=== PATIENT | female | born 1985 | race Caucasian/White ===

== ENCOUNTER 2016-10-31 16:15 | Observation (INO) | payer OTHER ==
--- NOTE | 2016-10-31 16:45 | ERPHSYRPT ---
- History of Present Illness Time Seen by Provider: 10/31/16 16:20 Source: patient, police Exam Limitations: clinical condition, intoxication Patient Subjective Stated Complaint: pd called to [facility] patient was disorietened and had white paste arounhd her mouth , resisted arrest , was taken to nursing home. Residential refused her until medical clearance Triage Nursing Assessment: pt is uncooperative and refusing to assist with triage information taken from old history Timing/Duration: today Severity of Symptoms-Max: severe Severity of Symptoms-Current: severe Suicidal thoughts: other (unknown) Associated Symptoms: agitated, confused, impaired concentration Previous symptoms: same symptoms as today, other (many presentations here for Meth abuse) Allergies/Adverse Reactions: No Known Drug Allergies Allergy (Unverified 05/21/14 18:09) Hx Tetanus, Diphtheria Vaccination/Date Given: (unknown) Hx Influenza Vaccination/Date Given: (unknown) Hx Pneumococcal Vaccination/Date Given: (unknown) Immunizations Up to Date: (unknown) - Past Medical History Pertinent Past Medical History: Yes Neurological History: No Pertinent History ENT History: No Pertinent History Respiratory History: No Pertinent History Endocrine Medical History: No Pertinent History Musculoskeletal History: No Pertinent History GI Medical History: No Pertinent History History: No Pertinent History Psycho-Social History: Anxiety, Depression, Other Female Reproductive Disorders: No Pertinent History Other Medical History: POST TRAUMATIC STRESS DISORDER. HEPATITIS C - Past Surgical History Past Surgical History: No Neuro Surgical History: No Pertinent History Cardiac: No Pertinent History Respiratory: No Pertinent History Gastrointestinal: No Pertinent History Genitourinary: No Pertinent History Musculoskeletal: No Pertinent History Female Surgical History: No Pertinent History - Social History Smoking Status: Current every day smoker How long have you smoked: 10 Exposure to second hand smoke: Yes Drug Use: methamphetamines Patient Lives Alone: Yes - Review of Systems Constitutional: No Symptoms Eyes: No Symptoms Ears, Nose, & Throat: No Symptoms Respiratory: No Symptoms Cardiac: No Symptoms Abdominal/Gastrointestinal: No Symptoms Genitourinary Symptoms: No Symptoms Musculoskeletal: No Symptoms Skin: No Symptoms Neurological: No Symptoms Psychological: Drug Abuse, Anxiety, Emotional Lability Endocrine: No Symptoms Hematologic/Lymphatic: No Symptoms Immunological/Allergic: No Symptoms All Other Systems: Unable due to condition (of intoxication and uncooperative) - Nursing Vital Signs Nursing Vital Signs: Initial Vital Signs Temperature 98.3 F Temperature Source Oral Pulse Rate 124 Respiratory Rate 16 Blood Pressure 138/98 Pain Intensity 0 - Physical Exam General Appearance: mild distress, anxiety Eyes, Ears, Nose, Throat Exam: normal ENT inspection, pharynx normal Neck Exam: normal inspection, non-tender, supple, full range of motion Respiratory Exam: normal breath sounds, lungs clear Cardiovascular Exam: regular rate/rhythm, normal heart sounds, normal peripheral pulses Gastrointestinal/Abdominal Exam: soft, normal bowel sounds Extremities Exam: normal inspection, normal range of motion 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, responds to pain, agitated, anxious, disoriented x 3 Appearance: disheveled, impaired insight, impaired recent memory Behavior/Eye Contact/Speech: refused to answer, increased rate of speech, uncooperative, agitated, alert & uncooperative, intoxicated appearance Thoughts/Hallucinations: incoherent Skin Exam: normal color, warm, dry SpO2 Interpretation: normal SpO2: 97 Oxygen Delivery: Room Air - Course Nursing assessment & vital signs reviewed: Yes Ordered Tests: Active Orders 24 hr Category Date Time Status Finisher Hot Strip STAT Care 10/31/16 16:28 Active Clean Catch Urine Specimen STAT Care 10/31/16 16:28 Active EKG-ER Only STAT Care 10/31/16 16:28 Active IV Insertion STAT Care 10/31/16 16:28 Active Pulse Oximetry (ED) STAT Care 10/31/16 16:28 Active CHEST 1 VIEW (PORTABLE) Stat Exams 10/31/16 16:28 Completed ACETAMINOPHEN Stat Lab 10/31/16 16:49 Completed CBC W DIFF Stat Lab 10/31/16 16:49 Completed CMP Stat Lab 10/31/16 16:49 Completed ETHYL ALCOHOL Stat Lab 10/31/16 16:48 Received HCG,QUALITATIVE URINE Stat Lab 10/31/16 16:28 Ordered SALICYLATE Stat Lab 10/31/16 16:49 Completed UA Stat Lab 10/31/16 16:28 Ordered Urine Triage Profile Stat Lab 10/31/16 16:28 Ordered Medication Summary Discontinued Medications Generic Name Dose Route Start Last Admin Trade Name Freq PRN Reason Stop Dose Admin Ziprasidone 20 mg 10/31/16 16:52 10/31/16 17:09 Geodon 20 Mg Inj IM 10/31/16 16:53 20 mg STAT ONE Administration Ziprasidone Confirm 10/31/16 16:53 Geodon 20 Mg Inj Administered 10/31/16 16:54 Dose 20 mg IM .STK-MED ONE Lab/Rad Data: Laboratory Result Diagrams 10/31/16 16:49 10/31/16 16:49 Laboratory Results 10/31/16 10/31/16 Range/Units 16:49 16:49 WBC 7.7 (4.0-10.5) K/mm3 RBC 4.39 (4.1-5.4) M/mm3 Hgb 12.6 (12.0-16.0) gm/dl Hct 39.8 (35-47) % MCV 90.7 (78-100) fl MCH 28.7 (26-32) pg MCHC 31.7 L (32-36) g/dl RDW 13.8 (11.5-14.0) % Plt Count 287 (150-450) K/mm3 MPV 9.3 (6-9.5) fl Gran % 69.6 H (36.0-66.0) % Lymphocytes % 20.7 L (24.0-44.0) % Monocytes % 8.3 (0.0-12.0) % Eosinophils % 1.0 (0.00-5.0) % Basophils % 0.4 (0.0-0.4) % Basophils # 0.03 (0-0.4) Sodium 141 (136-145) mEq/L Potassium 4.6 (3.5-5.1) mEq/L Chloride 102 (98-107) mEq/L Carbon Dioxide 27.3 (21-32) mEq/L Anion Gap 16.1 H (5-15) MEQ/L BUN 19 (9-20) mg/dL Creatinine 0.97 (0.55-1.30) mg/dl Estimated GFR > 60 ML/MIN Glucose 123 H (70-110) MG/DL Calcium 9.6 (8.5-10.1) mg/dL Total Bilirubin 0.3 (0.2-1.0) mg/dL AST 40 H (15-37) U/L ALT 75 (12-78) U/L Alkaline Phosphatase 68 (46-116) U/L Serum Total Protein 8.3 H (6.4-8.2) gm/dL Albumin 4.3 (3.4-5.0) g/dL Salicylates < 2.8 L (2.8-20.0) mg/dl Acetaminophen < 2.0 L (10-30) ug/ml - Progress Progress: improved Discussed with : Declan Will see patient in: hospital (observation) Counseled pt/family regarding: lab results, diagnosis, need for follow-up, rad results - Departure Time of Disposition: 17:40 Departure Disposition: Observation Clinical Impression: Substance abuse Intoxication by drug Qualifiers: Complication of substance-induced condition: with delirium Qualified Code(s): F19.921 - Other psychoactive substance use, unspecified with intoxication with delirium Condition: Serious Critical Care Time: Yes Critical Care Time(excluding separately billable procedures): 75-104 minutes
[2016-10-31] MEDS ORDERED: Geodon 20 MG INJ IM ONE ×2 (16:52→16:53)
--- NOTE | 2016-10-31 17:01 | XRAY ---
Indication: Overdose. Comparison: May 28, 2011 Portable chest again demonstrates normal heart, lungs, and bony thorax. Stable left upper abdomen benign appearing chunky calcifications.
[2016-10-31 17:17] LABS: BASOPHIL % 0.4 % (0.0-0.4); Granulocytes % 69.6 % (36.0-66.0); Lymphocytes % 20.7 % (24.0-44.0); Mean Cell Volume 90.7 fl (78-100); Mean Corpuscular Hemoglobin 28.7 pg (26-32); Mean Platelet Volume 9.3 fl (6-9.5); Monocytes % 8.3 % (0.0-12.0); Platelet Count 287 K/mm3 (150-450); Red Blood Count 4.39 M/mm3 (4.1-5.4); Red Cell Distribution Width 13.8 % (11.5-14.0); White Blood Count 7.7 K/mm3 (4.0-10.5)
[2016-10-31 17:32] LABS: ALBUMIN 4.3 g/dL (3.4-5.0); ALKALINE PHOSPHATASE 68 U/L (46-116); ANION GAP 16.1 MEQ/L (5-15); BILIRUBIN,TOTAL 0.3 mg/dL (0.2-1.0); BLOOD UREA NITROGEN 19 mg/dL (9-20); CHLORIDE 102 mEq/L (98-107); Carbon Dioxide 27.3 mEq/L (21-32); Glucose 123 MG/DL (70-110); Potassium 4.6 mEq/L (3.5-5.1); SGOT/AST 40 U/L (15-37); SGPT/ALT 75 U/L (12-78); SODIUM 141 mEq/L (136-145); Total Protein 8.3 gm/dL (6.4-8.2)
[2016-10-31 17:33] LABS: ACETAMINOPHEN < 2.0 ug/ml (10-30)
[2016-10-31] MEDS ORDERED: Zofran 4 MG/2 ML VIAL IV PRN (17:45)
[2016-10-31] MEDS ORDERED: Sodium Chloride 0.9% 1000 ML 1,000 ML ONE (18:01)
[2016-10-31] MEDS ORDERED: Zofran 4 MG/2 ML VIAL ONE (18:01)
[2016-10-31] MEDS: Sodium Chloride 0.9% 1000 ML 1,000 ML IV SCH ×2 (18:03→21:40)
[2016-10-31 18:37] LABS: COMPLETE URINE MICROSCOPIC? YES; Collection Type CATH; Mucus SLIGHT /HPF (NEGATIVE); WBC 15-25 /HPF (0-5)
[2016-10-31 18:38] LABS: Bacteria FEW /HPF (NEGATIVE); Epithelial Cells MODERATE /HPF (FEW); Trichomonas PRESENT /HPF (NEGATIVE)
[2016-11-01] MEDS: Sodium Chloride 0.9% 1000 ML 1,000 ML IV SCH (05:49)
[2016-11-01] MEDS ORDERED: Flagyl 500 MG PO ONE (07:53)
--- NOTE | 2016-11-01 07:56 | PCM.HP ---
History of Present Illness - Chief Complaint Chief Complaint: substance intoxication Date: 11/01/16 History of Present Illness: is a 31 year old female. with history of anxiety, panic disorder, and polysubstance abuse. She states she was at a person's house across from her mother's who she did not know and saw a man she thought had stopped breathing and overdosed. She had 1 hit of meth prior to this but states she was not "cranked out or anything" when this happened and she tried to breath for him but the other people at the house were trying to get her to stop and she eventually ran out side to tell her mother to call the ambulance but the other people stopped her from calling and ended up agreeing to take him to the ED. At this time she states she started having a panic attack from all this happening and was trying to get to the hospital to make sure this person she did not know made it to the ED she states she waved down a car who agreed to take her but not all the way to the hospital and she states she told them to take her to the library because where she lives in [facility] she states the "librarians will help you". When she got there she states she was having a panic attack and was hyperventilating and couldn't get her words out so the staff called the police who tried to arrest her per the ED report and then since she was intoxicated in appearance took her to the ED for clearance where she was very agitated but calmed down nicely with geodon. THis am she feels ok she is still anxious she says sthe man she though was turned out to be ok but she thinks he needed to be revived. (it is unclear what happened wit hthis person but there was report of a person presenting to the ED for something like this). She states she only used marijuana xanax and THC. She wants help with her anxiety and she states her substance abuse is in the best control it has been in awhile and wants help with it too. She has no intention of harming herself. - Review of Systems Constitutional: No Fever, No Chills Eyes: No Symptoms Ears, Nose, & Throat: No Symptoms Respiratory: No Cough, No Short Of Breath Cardiac: No Chest Pain, No Edema, No Syncope Abdominal/Gastrointestinal: No Abdominal Pain, No Nausea, No Vomiting, No Diarrhea Genitourinary Symptoms: No Dysuria Musculoskeletal: No Back Pain, No Neck Pain Skin: No Rash Neurological: No Dizziness, No Focal Weakness, No Sensory Changes Psychological: No Symptoms Endocrine: No Symptoms Hematologic/Lymphatic: No Symptoms Immunological/Allergic: No Symptoms Medications & Allergies Home Medications: Home Medication List Acetaminophen 325 mg [Tylenol 325 mg] 325 mg PO Q4HPRN PRN 11/01/16 [ History Confirmed 11/01/16] Omeprazole Magnesium [Prilosec Otc] 20 mg PO DAILY 11/01/16 [History Confirmed 11/01/16] Allergies/Adverse Reactions: Allergies Allergy/AdvReac Type Severity Reaction Status Date / Time No Known Drug Allergies Allergy Unverified 05/21/14 18:09 - Past Medical History Past Medical History: Yes Neurological History: No Pertinent History ENT History: No Pertinent History Cardiac History: No Pertinent History Respiratory History: No Pertinent History Endocrine Medical History: No Pertinent History Musculoskelatal History: No Pertinent History GI Medical History: No Pertinent History History: No Pertinent History Pyscho-Social History: Anxiety, Depression, Other Reproductive Disorders: No Pertinent History Comment: POST TRAUMATIC STRESS DISORDER. HEPATITIS C - Female History Are you now?: No - Past Surgical History Past Surgical History: No Neuro Surgical History: No Pertinent History Cardiac History: No Pertinent History Respiratory Surgery: No Pertinent History GI Surgical History: No Pertinent History Genitourinary Surgical Hx: No Pertinent History Musculskeletal Surgical Hx: No Pertinent History Female Surgical History: No Pertinent History - Social History Smoking Status: Current every day smoker How long have you smoked: 10 Exposure to second hand smoke: Yes Alcohol: Rarely Drug Use: methamphetamines - Physical Exam Vital Signs: Vital Signs - 24 hr Temp Pulse Resp BP BP Pulse Ox 11/01/16 04:00 98.1 F 102 H 19 118/73 98 10/31/16 23:48 97.7 F 102 H 20 120/51 96 10/31/16 20:30 98.6 F 112 H 20 113/64 96 10/31/16 19:02 98.3 F 109 H 20 99/66 95 10/31/16 18:55 109 H 20 99/66 95 10/31/16 17:56 117 H 16 111/58 96 10/31/16 17:43 97 10/31/16 16:28 97 01/03/17 16:16 98.3 F 124 H 16 138/98 97 General Appearance: no apparent distress, alert, anxiety Neurologic Exam: alert, oriented x 3, cooperative, normal mood/affect, nml cerebellar function, nml station & gait, sensation nml, No motor deficits Eye Exam: PERRL/EOMI, eyes nml inspection Ears, Nose, Throat Exam: normal ENT inspection, TMs normal, pharynx normal, moist mucous membranes Neck Exam: normal inspection, non-tender, supple, full range of motion Respiratory Exam: normal breath sounds, lungs clear, No respiratory distress Cardiovascular Exam: regular rate/rhythm, normal heart sounds, normal peripheral pulses Gastrointestinal/Abdomen Exam: soft, normal bowel sounds, No tenderness, No mass Back Exam: normal inspection, normal range of motion, No CVA tenderness, No vertebral tenderness Extremity Exam: normal inspection, normal range of motion, pelvis stable Skin Exam: normal color, warm, dry, No rash Lymphatic Exam: No adenopathy Assessment/Plan (1) Anxiety Status: Acute Assessment & Plan: the intoxication appears to have worn off and she is acting appropraitely at this time and will [facility] Code(s): F41.9 - ANXIETY DISORDER, UNSPECIFIED (2) Trichomoniasis Status: Acute Assessment & Plan: asymptomatic treat with 2 g flagyl po discussed the sexual transmitted infection and need for check up and screening for other sexually transmitted infections. (3) Intoxication by drug Status: Acute Qualifiers: Complication of substance-induced condition: with delirium Qualified Code(s ): F19.921 - Other psychoactive substance use, unspecified with intoxication with delirium Code(s): F19.929 - OTH PSYCHOACTIVE SUBSTANCE USE, UNSP WITH INTOXICATION, UNSP (4) Substance abuse Status: Acute Code(s): F19.10 - OTHER PSYCHOACTIVE SUBSTANCE ABUSE, UNCOMPLICATED
[2016-11-01 09:15] VITALS: O2SAT 99
[2016-11-01] MEDS ORDERED: Protonix 40MG Tablet PO SCH (10:00)
[2016-11-01] MEDS ORDERED: NON-FORMULARY ITEM (Omeprazole Magnesium [Prilosec Otc] 20 MG) PO SCH (10:00)
[2016-11-01 12:13] VITALS: BP 121/58; PULSE 108
== END 2016-11-01 13:25 | disposition home or self-care (01) ==
LOC: ED 16:15 → ICU 18:29
PROVIDERS: ADMIT Family Medicine; ATTEND Family Medicine
DX: A59.9 Trichomoniasis, unspecified (principal); F19.921 Other psychoactive substance use, unspecified with intoxication with delirium; F19.929 Other psychoactive substance use, unspecified with intoxication, unspecified
CPT/HCPCS: 36000; 36415; 71010; 80053; 80307; 81000; 84703; 85025; 90791; 93005; 93041; 93268; 94760; 96372; 99284; G0378; J2405; J3486; Q3014

== ENCOUNTER 2017-03-06 15:50 | Emergency (ER) | payer SELFPAY ==
[2017-03-06 16:06] VITALS: O2SAT 98
[2017-03-06 16:14] LABS: Collection Type CLEAN CATCH
[2017-03-06 16:15] LABS: COMPLETE URINE MICROSCOPIC? NO
[2017-03-06 16:41] LABS: Bacteria Rare; Clue Cells None Seen; Trichomonas None Seen; Yeast None Seen
--- NOTE | 2017-03-06 16:43 | ERPHSYRPT ---
- History of Present Illness Time Seen by Provider: 03/06/17 16:07 Source: patient Patient Subjective Stated Complaint: pt states she has had vaginal discomfort and worried she may have a "bacterial infection." pt states she has had this in the past. denies any vaginal discharge, c/o an odor. Triage Nursing Assessment: pt pink, warm, dry. pt afebrile. Physician History: CC: vaginal odor Hx: 31 y/o healthy pt with remote hx of trich. She has vaginal odor. Finished normal menses this week. Normal urination. No abd pain. No fever or chills. Went to doctor office but could not be seen due to insurance. Allergies/Adverse Reactions: No Known Drug Allergies Allergy (Unverified 03/06/17 16:06) Hx Tetanus, Diphtheria Vaccination/Date Given: Yes (up to date) Hx Influenza Vaccination/Date Given: No Hx Pneumococcal Vaccination/Date Given: No - Review of Systems Constitutional: No Fever Abdominal/Gastrointestinal: No Abdominal Pain Genitourinary Symptoms: Other (vaginal odor), No , No Vaginal Bleeding , No Vaginal Discharge, No Vaginal Itching Skin: Rash - Past Medical History Pertinent Past Medical History: No Neurological History: No Pertinent History ENT History: No Pertinent History Cardiac History: No Pertinent History Respiratory History: No Pertinent History Endocrine Medical History: No Pertinent History Musculoskeletal History: No Pertinent History GI Medical History: No Pertinent History History: No Pertinent History Psycho-Social History: Anxiety, Depression, Other Female Reproductive Disorders: No Pertinent History Other Medical History: POST TRAUMATIC STRESS DISORDER. HEPATITIS C - Past Surgical History Past Surgical History: Yes Neuro Surgical History: No Pertinent History Cardiac: No Pertinent History Respiratory: No Pertinent History Gastrointestinal: Appendectomy Genitourinary: No Pertinent History Musculoskeletal: No Pertinent History Female Surgical History: No Pertinent History - Social History Smoking Status: Current every day smoker How long have you smoked: 5 Exposure to second hand smoke: Yes Drug Use: none Patient Lives Alone: No - Female History Hx Last Menstrual Period: 03/05/17 - Nursing Vital Signs Nursing Vital Signs: Initial Vital Signs Temperature 98.5 F Temperature Source Oral Pulse Rate 98 Respiratory Rate 18 Blood Pressure [Right Arm] 104/77 Pain Intensity 0 - Physical Exam General Appearance: alert Eye Exam: PERRL/EOMI Neck Exam: supple Cardiovascular Exam: regular rate/rhythm Gastrointestinal/Abdomen Exam: soft, No tenderness, No distention Pelvic Exam: normal external exam, No adnexal tenderness, No adnexal mass, No cervical motion tenderness, No vaginal bleeding, No uterine tenderness, No vaginal discharge Extremity Exam: normal inspection, normal range of motion Neurologic Exam: alert, oriented x 3, cooperative Skin Exam: warm, dry, No rash SpO2 Interpretation: normal SpO2: 98 Oxygen Delivery: Room Air - Course Nursing assessment & vital signs reviewed: Yes Ordered Tests: Active Orders 24 hr Category Date Time Status Pelvic Exam Assist STAT Care 03/06/17 16:08 Active HCG,QUALITATIVE URINE Stat Lab 03/06/17 16:09 Completed UA Stat Lab 03/06/17 16:09 Completed Wet Prep Stat Lab 03/06/17 16:09 Completed Lab/Rad Data: Laboratory Results 03/06/17 03/06/17 Range/Units 16:09 16:09 Ur Collection Type CLEAN CATCH Urine Color YELLOW (YELLOW) Urine Appearance CLEAR (CLEAR) Urine pH 7.0 (5-6) Ur Specific [place] 1.015 (1.005-1.025) Urine Protein NEGATIVE (Negative) Urine Glucose (UA) NEGATIVE (NEGATIVE) mg/dL Urine Ketones NEGATIVE (NEGATIVE) Urine Nitrite NEGATIVE (NEGATIVE) Urine Bilirubin NEGATIVE (NEGATIVE) Urine Urobilinogen 0.2 (0-1) mg/dL Urine WBC (Auto) NEGATIVE (NEGATIVE) Urine RBC (Auto) NEGATIVE (0-5) Chong/ul Urine HCG, Qual NEGATIVE (Negative) WBC (Wet Prep) Few RBC (Wet Prep) Rare Epi Cells (Wet Prep) Few Bacteria (Wet Prep) Rare Clue Cells (Wet Prep) None Seen Trichomonas (Wet Prep) None Seen Budding Yeast (Wet Prp) None Seen Specimen Received 03/06/17 1600 - Progress Progress Note: 03/06/17 16:48 Will Rx flagyl to cover BV. GC/CT pending. Instr given. Counseled pt/family regarding: lab results, diagnosis, need for follow-up - Departure Time of Disposition: 16:49 Departure Disposition: Home Clinical Impression: Bacterial vaginosis Condition: Stable Critical Care Time: No Referrals: SOLEDAD HUERTA [Primary Care Provider] - Instructions: Bacterial Vaginosis Additional Instructions: Rx flagyl- no alcohol produtcs. Follow up with Dr Huerta. GC/CT pending. Prescriptions: Metronidazole 500 mg [Flagyl 500 MG] 500 mg PO BID #14 tablet
[2017-03-06 16:57] VITALS: BP 106/68; PULSE 88
[2017-03-06 18:08] LABS: CHLAMYDIA DNA POSITIVE
== END 2017-03-06 16:56 | disposition home or self-care (01) ==
LOC: ED 15:50
DX: N76.0 Acute vaginitis (principal); B96.89 Other specified bacterial agents as the cause of diseases classified elsewhere
CPT/HCPCS: 81002; 84703; 87210; 87490; 87590; 99283

== ENCOUNTER 2017-05-16 12:31 | Emergency (ER) | payer SELFPAY ==
[2017-05-16] MEDS ORDERED: CORTISPORIN EAR DROPS 10 ML SUSPENSION OT ONE (13:01)
[2017-05-16] MEDS ORDERED: Cortisporin Eye Drops OP ONE (13:07)
--- NOTE | 2017-05-16 13:11 | ERPHSYRPT ---
- History of Present Illness Time Seen by Provider: 05/16/17 13:04 Source: patient, police Exam Limitations: no limitations Patient Subjective Stated Complaint: "I was trying to make an ear plug. I put toilet paper in my left ear about 8 days ago" Triage Nursing Assessment: aox3, breathing easy unlabored, skin pink warm dry, steady gait Physician History: patient CC of FB left ear; she placed a cotton wad in her left ear 8 days ago; no pain; no d/c' no fever but cant hear from left ear Timing/Duration: gradual onset, days (8) Severity: mild ENT Location: ear (L) Prearrival Treatment: no prearrival treatment Modifying Factors: Improves With: nothing Associated Symptoms: change in hearing (left) Allergies/Adverse Reactions: No Known Drug Allergies Allergy (Verified 05/16/17 12:39) Home Medications: Omeprazole 20 MG [Prilosec 20 mg] 20 mg PO DAILY 05/16/17 [History] Hx Tetanus, Diphtheria Vaccination/Date Given: Yes (up to date) Hx Influenza Vaccination/Date Given: No Hx Pneumococcal Vaccination/Date Given: No - Review of Systems Constitutional: No Symptoms Eyes: No Symptoms Ears, Nose, & Throat: Hearing Changes (left), No Ear Pain, No Ear Discharge, No Tinnitus, No Nose Pain, No Epistaxis Respiratory: No Cough, No Dyspnea, No Wheezing Cardiac: No Chest Pain, No Palpitations, No Syncope Abdominal/Gastrointestinal: No Abdominal Pain, No Nausea, No Vomiting, No Diarrhea Genitourinary Symptoms: No Symptoms Musculoskeletal: No Symptoms Skin: No Symptoms Neurological: No Symptoms Psychological: No Symptoms - Past Medical History Pertinent Past Medical History: Yes Neurological History: No Pertinent History ENT History: No Pertinent History Cardiac History: No Pertinent History Respiratory History: No Pertinent History Endocrine Medical History: No Pertinent History Musculoskeletal History: No Pertinent History GI Medical History: GERD History: No Pertinent History Psycho-Social History: Anxiety, Depression, Other Female Reproductive Disorders: No Pertinent History Other Medical History: POST TRAUMATIC STRESS DISORDER. HEPATITIS C - Past Surgical History Past Surgical History: Yes Neuro Surgical History: No Pertinent History Cardiac: No Pertinent History Respiratory: No Pertinent History Gastrointestinal: Appendectomy Genitourinary: No Pertinent History Musculoskeletal: No Pertinent History Female Surgical History: No Pertinent History - Social History Smoking Status: Current every day smoker How long have you smoked: 8 Exposure to second hand smoke: Yes Alcohol Use: Socially Drug Use: none Patient Lives Alone: No Significant Family History: no pertinent family hx - Female History Hx Last Menstrual Period: 04/16/17 Hx Now: No - Nursing Vital Signs Nursing Vital Signs: Initial Vital Signs Temperature 98.2 F 05/16/17 12:35 Pulse Rate 95 H 05/16/17 12:35 Respiratory Rate 14 05/16/17 12:35 Blood Pressure 130/67 05/16/17 12:35 O2 Sat by Pulse Oximetry 100 05/16/17 12:35 Pain Scale Pain Intensity 0 - Physical Exam General Appearance: mild distress, alert Eye Exam: bilateral eye: normal inspection, PERRL, EOMI Ear Exam: right ear: TM normal, left ear: foreign body (partially obstructing left ear canal deep; TM partially visualized; hearing decreased), bilateral ear : auricle normal, canal normal Nasal Exam: normal inspection Throat Exam: normal, pharynx normal, moist mucus membranes Neck Exam: normal inspection, non-tender, supple, full range of motion Cardiovascular/Respiratory Exam: chest non-tender, normal breath sounds, regular rate/rhythm, heart sounds normal, no ecchymosis, no JVD, no M/R/G, no respiratory distress Abdominal Exam: non-tender, soft, no organomegaly Neurologic Exam: alert, oriented x 3, cooperative, bank messenger II-XII nml as tested, normal mood/affect, nml cerebellar function, nml station & gait Skin Exam: normal color, warm, dry, No rash SpO2 Interpretation: normal SpO2: 100 Oxygen Delivery: Room Air Procedures - Additional Procedures Progress: FB removal left Ear; under direct visualization of left ear canal using operating otoscope head and alligator forceps a large amount of tissue type paper was retrieved in multiple pieces until canal clear; hearing restored and TM intact; patient tolerated well; several drops of cortisporin otic applied for inflammed appearing canal post removal - Course Nursing assessment & vital signs reviewed: Yes Ordered Tests: Active Orders 24 hr Category Date Time Status Re-Check Vital Signs STAT Care 05/16/17 13:04 Ordered Medication Summary Discontinued Medications Generic Name Dose Route Start Last Admin Trade Name Freq PRN Reason Stop Dose Admin Neomycin/Polymyxin/Hydrocortisone Confirm 05/16/17 13:01 Cortisporin Ear Drops 10 Ml Suspension Administered 05/16/17 13:02 Dose 10 ml OT .STK-MED ONE - Progress Progress: improved (after removal of FB), re-examined (after removal of FB) Progress Note: 05/16/17 13:13 removed FB left Ear canal; tolerated well; canal inflamed after removal; TM intact and hearing improved; meds applied; instructions given Counseled pt/family regarding: diagnosis, need for follow-up - Departure Time of Disposition: 13:14 Departure Disposition: Home Clinical Impression: Acute foreign body of left ear canal Condition: Stable Critical Care Time: No Instructions: Removal of Foreign Body From Ear Additional Instructions: use ear drops 2x a day for 5 days; do NOT place any FB in the ear Follow-up with family doctor as directed. Call for appointment. Return if any problems. If you smoke please stop. Call or follow up with your family doctor for assistance if you need it to stop. Please wear your seatbelt when driving. Have a nice day. Thank you for allowing us to participate in your care today. :o) Dr Andrez Martinez
[2017-05-16 13:22] VITALS: BP 101/63; PULSE 93; O2SAT 99
== END 2017-05-16 13:20 | disposition home or self-care (01) ==
LOC: ED 12:31
DX: T16.2XXA Foreign body in left ear, initial encounter (principal)
CPT/HCPCS: 99283; A9270-GY

== ENCOUNTER 2018-05-17 21:42 | Emergency (ER) | payer OTHER ==
[2018-05-17 22:04] VITALS: BP 126/86; PULSE 96; O2SAT 99
[2018-05-17] MEDS ORDERED: Rocephin 1000 MG INJ ONE (22:13)
[2018-05-17] MEDS ORDERED: TORAdol 30 mg Injection ONE ×2 (22:13→22:21)
--- NOTE | 2018-05-17 22:17 | ERPHSYRPT ---
- History of Present Illness Time Seen by Provider: 05/17/18 22:12 Source: patient Exam Limitations: no limitations Patient Subjective Stated Complaint: pt co large abcess on left wrist anterior forearm for approx 1 week; started as a small redddened area 1 week ago and then 2 days ago became very large, red, and painful; pt states it has not been draining at all since onset. Triage Nursing Assessment: pt a&o x3; skin p, w, & d; ambulated to room per self ; no other distress noted. Physician History: pt co large abcess on left wrist anterior forearm for approx 1 week; started as a small redddened area 1 week ago and then 2 days ago became very large, red, and painful; pt states it has not been draining at all since onset. Occurred: last week, days ago Severity of Pain-Max: severe Severity of Pain-Current: severe Extremities Pain Location: forearm: left, wrist: left Modifying Factors: Improves With: nothing Associated Symptoms: none Allergies/Adverse Reactions: No Known Drug Allergies Allergy (Verified 05/17/18 22:04) Home Medications: Omeprazole 20 MG [Prilosec 20 mg] 20 mg PO DAILY 05/16/17 [History] Hx Tetanus, Diphtheria Vaccination/Date Given: Yes Hx Influenza Vaccination/Date Given: No Hx Pneumococcal Vaccination/Date Given: No Immunizations Up to Date: No - Review of Systems Constitutional: No Symptoms Eyes: No Symptoms Musculoskeletal: Joint Swelling, Other (large abscess on benjamin surface of left lower forearm) - Past Medical History Pertinent Past Medical History: Yes Neurological History: No Pertinent History ENT History: No Pertinent History Cardiac History: No Pertinent History Respiratory History: No Pertinent History Endocrine Medical History: No Pertinent History Musculoskeletal History: No Pertinent History GI Medical History: GERD History: No Pertinent History Psycho-Social History: Anxiety, Depression, Other Female Reproductive Disorders: No Pertinent History Other Medical History: POST TRAUMATIC STRESS DISORDER. HEPATITIS C - Past Surgical History Past Surgical History: Yes Neuro Surgical History: No Pertinent History Cardiac: No Pertinent History Respiratory: No Pertinent History Gastrointestinal: Appendectomy Genitourinary: No Pertinent History Musculoskeletal: No Pertinent History Female Surgical History: No Pertinent History - Social History Smoking Status: Current every day smoker How long have you smoked: 5 years Exposure to second hand smoke: No Alcohol Use: Socially Drug Use: none Patient Lives Alone: Yes (pt states she is homeless) Significant Family History: no pertinent family hx - Female History Hx Last Menstrual Period: 3 months ago Hx Now: No - Nursing Vital Signs Nursing Vital Signs: Initial Vital Signs Temperature 98.1 F 05/17/18 21:49 Pulse Rate 96 H 05/17/18 21:49 Respiratory Rate 18 05/17/18 21:49 Blood Pressure 126/86 05/17/18 21:49 O2 Sat by Pulse Oximetry 99 05/17/18 21:49 Pain Scale Pain Intensity 8 - Physical Exam General Appearance: no apparent distress Eyes, Ears, Nose, Throat Exam: normal ENT inspection Cardiovascular/Respiratory Exam: chest non-tender, normal breath sounds Elbow/Forearm Exam: pain, soft tissue tenderness, swelling SpO2: 99 Oxygen Delivery: Room Air - Course Nursing assessment & vital signs reviewed: Yes Ordered Tests: Active Orders 24 hr Category Date Time Status CBC W DIFF Stat Lab 05/17/18 22:06 Ordered CMP Stat Lab 05/17/18 22:06 Ordered - Progress Progress: unchanged (Dr Cardona), pain not gone completely Progress Note: 05/17/18 22:15 [facility] ED (one call center) notified, will accept transfer, Dr Srinivasan accepted patient and will see her in ER Discussed with Dr.: Other ( ) Will see patient in: ED - Departure Time of Disposition: 22:15 Departure Disposition: Transfer (via priavate car to [facility] ED) Clinical Impression: Abscess of forearm, left Condition: Stable Critical Care Time: No Referrals: SOLEDAD HEURTA [Primary Care Provider] - Instructions: Wound Infection
[2018-05-17 22:29] LABS: BASOPHIL % 0.3 % (0.0-0.4); Basophil (Absolute #) 0.02 (0-0.4); Eosinophil % 3.4 % (0.00-5.0); Eosinophil (Absolute #) 0.24 (0-0.5); Granulocyte Absolute (ANC) 3.66 (1.4-6.9); Granulocytes % 51.3 % (36.0-66.0); Hematocrit 36.2 % (35-47); Hemoglobin 11.8 gm/dl (12.0-16.0); Lymphocyte (Absolute #) 2.54 (1.0-4.6); Lymphocytes % 35.7 % (24.0-44.0); Mean Cell Volume 90.5 fl (78-100); Mean Corpuscular Hemoglobin 29.5 pg (26-32); Mean Corpuscular Hgb Concent. 32.6 g/dl (32-36); Mean Platelet Volume 8.6 fl (6-9.5); Monocyte (Absolute #) 0.66 (0.0-1.3); Monocytes % 9.3 % (0.0-12.0); Platelet Count 280 K/mm3 (150-450); Red Cell Distribution Width 14.1 % (11.5-14.0); White Blood Count 7.1 K/mm3 (4.0-10.5)
[2018-05-17] MEDS ORDERED: TORAdol 30 mg Injection IM ONE (22:30)
[2018-05-17] MEDS ORDERED: Rocephin 1000 MG INJ IM ONE (22:31)
[2018-05-17 22:46] LABS: ALBUMIN 4.1 g/dL (3.5-5.0); ALKALINE PHOSPHATASE 66 U/L (38-126); ANION GAP 12.6 MEQ/L (5-15); BLOOD UREA NITROGEN 13 mg/dL (7-17); CHLORIDE 105 mmol/L (98-107); Calcium 9.5 mg/dL (8.4-10.2); Carbon Dioxide 30 mmol/L (22-30); Creatinine 1 0.77 mg/dL (0.52-1.04); Glucose 102 mg/dL (74-106); Potassium 4.1 mmol/L (3.5-5.1); SGOT/AST 23 U/L (14-36); SGPT/ALT 22 U/L (0-35); SODIUM 143 mmol/L (137-145); Total Protein 7.2 g/dL (6.3-8.2)
== END 2018-05-17 22:44 | disposition short-term general hospital (02) ==
LOC: ED 21:42
DX: L02.414 Cutaneous abscess of left upper limb (principal)
CPT/HCPCS: 36415; 80053; 85025; 96372; 99284; J0696; J1885

== ENCOUNTER 2018-06-14 14:03 | Emergency (ER) | payer OTHER ==
--- NOTE | 2018-06-14 14:19 | ERPHSYRPT ---
- History of Present Illness Time Seen by Provider: 06/14/18 14:13 Source: patient Exam Limitations: no limitations Patient Subjective Stated Complaint: pt to er per PD, uncooperative, Pd advising pt was arrested in [place] and pt appeared under the influence of an unknown substance, pt refuses to speak, appears confused, takes repetitive instruction to get her to understand direcrtions Triage Nursing Assessment: pt uncooperative, appears as if she is unable to understand simple directions, ambulates per self but with slow gait while in handcuffs behind her back Physician History: 33-year-old white female with history of GERD, anxiety, depression, PTSD, hepatitis C, substance abuse She is brought by the police department She apparently either cannot talk or will not talk. Police Department feel that the patient might have taken some substance are not sure which. Past medical history obtained from records. Past medical history includes GERD, anxiety, depression, PTSD, hepatitis C, substance abuse Past surgical history includes appendectomy Timing/Duration: today Severity: moderate Modifying Factors: Improves With: nothing Associated Symptoms: other (patient will not answer questions) Allergies/Adverse Reactions: No Known Drug Allergies Allergy (Verified 05/17/18 22:04) Home Medications: Omeprazole 20 MG [Prilosec 20 mg] 20 mg PO DAILY 05/16/17 [History] Hx Tetanus, Diphtheria Vaccination/Date Given: Yes Hx Influenza Vaccination/Date Given: No Hx Pneumococcal Vaccination/Date Given: No - Review of Systems All Other Systems: Unable due to condition (patient will not answer question) - Past Medical History Pertinent Past Medical History: Yes Neurological History: No Pertinent History ENT History: No Pertinent History Cardiac History: No Pertinent History Respiratory History: No Pertinent History Endocrine Medical History: No Pertinent History Musculoskeletal History: No Pertinent History GI Medical History: GERD History: No Pertinent History Psycho-Social History: Anxiety, Depression, Other Female Reproductive Disorders: No Pertinent History Other Medical History: POST TRAUMATIC STRESS DISORDER. HEPATITIS C - Past Surgical History Past Surgical History: Yes Neuro Surgical History: No Pertinent History Cardiac: No Pertinent History Respiratory: No Pertinent History Gastrointestinal: Appendectomy Genitourinary: No Pertinent History Musculoskeletal: No Pertinent History Female Surgical History: No Pertinent History - Social History Smoking Status: Current every day smoker How long have you smoked: 5 years Exposure to second hand smoke: No Alcohol Use: Socially Drug Use: none Patient Lives Alone: Yes (pt states she is homeless) Significant Family History: no pertinent family hx - Female History Hx Now: No - Nursing Vital Signs Nursing Vital Signs: Initial Vital Signs Temperature 98.3 F 06/14/18 14:05 Pulse Rate 100 H 06/14/18 14:05 Respiratory Rate 20 06/14/18 14:05 Blood Pressure 118/83 06/14/18 14:05 O2 Sat by Pulse Oximetry 99 06/14/18 14:05 - Physical Exam General Appearance: no apparent distress, alert Eye Exam: PERRL/EOMI, eyes nml inspection Ears, Nose, Throat Exam: normal ENT inspection, TMs normal, other (Patient will not open mouth for examination) Neck Exam: normal inspection, non-tender, supple, full range of motion Respiratory Exam: normal breath sounds, lungs clear, No respiratory distress Cardiovascular Exam: regular rate/rhythm, normal heart sounds, normal peripheral pulses Gastrointestinal/Abdomen Exam: soft, normal bowel sounds, No tenderness, No mass Back Exam: normal inspection, normal range of motion, No CVA tenderness, No vertebral tenderness Extremity Exam: normal inspection, normal range of motion, pelvis stable Neurologic Exam: alert, 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 as tested, normal mood/affect, nml cerebellar function, nml station & gait, sensation nml, other (orientation appears to be normal patient will not answer questions), No motor deficits Skin Exam: normal color, warm, dry, No rash Lymphatic Exam: No adenopathy SpO2 Interpretation: normal (99%) SpO2: 99 Oxygen Delivery: Room Air - Course Nursing assessment & vital signs reviewed: Yes Ordered Tests: Active Orders 24 hr Category Date Time Status EKG-ER Only STAT Care 06/14/18 14:12 Active ACETAMINOPHEN Stat Lab 06/14/18 14:20 Completed CBC W DIFF Stat Lab 06/14/18 14:20 Completed CMP Stat Lab 06/14/18 14:20 Completed CULTURE,URINE Stat Lab 06/14/18 13:44 Received ETHYL ALCOHOL Stat Lab 06/14/18 14:20 Completed HCG QUALITATIVE,SERUM Stat Lab 06/14/18 14:20 Completed SALICYLATE Stat Lab 06/14/18 14:20 Completed UA W/ MICROSCOPIC Stat Lab 06/14/18 13:44 Completed Urine Triage Profile Stat Lab 06/14/18 13:44 Completed Lab/Rad Data: Laboratory Result Diagrams 06/14/18 14:20 06/14/18 14:20 Laboratory Results 06/14/18 06/14/18 06/14/18 Range/Units 14:20 14:20 14:20 WBC 6.3 (4.0-10.5) K/mm3 RBC 4.60 (4.1-5.4) M/mm3 Hgb 13.7 (12.0-16.0) gm/dl Hct 40.6 (35-47) % MCV 88.3 (78-100) fl MCH 29.8 (26-32) pg MCHC 33.7 (32-36) g/dl RDW 14.2 H (11.5-14.0) % Plt Count 298 (150-450) K/mm3 MPV 8.9 (6-9.5) fl Gran % 62.1 (36.0-66.0) % Eos # (Auto) 0.14 (0-0.5) Absolute Lymphs (auto) 1.62 (1.0-4.6) Absolute Monos (auto) 0.61 (0.0-1.3) Lymphocytes % 25.7 (24.0-44.0) % Monocytes % 9.7 (0.0-12.0) % Eosinophils % 2.2 (0.00-5.0) % Basophils % 0.3 (0.0-0.4) % Absolute Granulocytes 3.91 (1.4-6.9) Basophils # 0.02 (0-0.4) Sodium 142 (137-145) mmol/L Potassium 4.1 (3.5-5.1) mmol/L Chloride 103 (98-107) mmol/L Carbon Dioxide 21 L (22-30) mmol/L Anion Gap 21.9 H (5-15) MEQ/L BUN 22 H (7-17) mg/dL Creatinine 0.75 (0.52-1.04) mg/dL Estimated GFR > 60.0 ML/MIN Glucose 97 (74-106) mg/dL Calcium 9.8 (8.4-10.2) mg/dL Total Bilirubin 1.00 (0.2-1.3) mg/dL AST 31 (14-36) U/L ALT 27 (0-35) U/L Alkaline Phosphatase 75 (38-126) U/L Serum Total Protein 8.7 H (6.3-8.2) g/dL Albumin 5.1 H (3.5-5.0) g/dL Serum , Qual NEGATIVE (Negative) Ur Collection Type Urine Color (YELLOW) Urine Appearance (CLEAR) Urine pH (5-6) Ur Specific [place] (1.005-1.025) Urine Protein (Negative) Urine Ketones (NEGATIVE) Urine Blood (0-5) Chong/ul Urine Nitrite (NEGATIVE) Urine Bilirubin (NEGATIVE) Urine Urobilinogen (0-1) mg/dL Ur Leukocyte Esterase (NEGATIVE) Urine Microscopic RBC (0-2) /HPF Ur Epithelial Cells (FEW) /HPF Urine Bacteria (NEGATIVE) /HPF Urine Mucus (NEGATIVE) /HPF Urine Culture Reflexed (NO) Urine Glucose (NEGATIVE) mg/dL Salicylates < 1.0 L (2-20) mg/dL Urine Opiates Level (NEGATIVE) Ur Methadone (NEGATIVE) Acetaminophen < 10 L (10-30) ug/ml Urine Barbiturates (NEGATIVE) Ur Phencyclidine (PCP) (NEGATIVE) Urine Amphetamine (NEGATIVE) U Benzodiazepine Level (NEGATIVE) Urine Cocaine (NEGATIVE) Urine Marijuana (THC) (NEGATIVE) Ethyl Alcohol < 10 (0-10) mg/dL Specimen Received 06/14/18 06/14/18 Range/Units 13:44 13:44 WBC (4.0-10.5) K/mm3 RBC (4.1-5.4) M/mm3 Hgb (12.0-16.0) gm/dl Hct (35-47) % MCV (78-100) fl MCH (26-32) pg MCHC (32-36) g/dl RDW (11.5-14.0) % Plt Count (150-450) K/mm3 MPV (6-9.5) fl Gran % (36.0-66.0) % Eos # (Auto) (0-0.5) Absolute Lymphs (auto) (1.0-4.6) Absolute Monos (auto) (0.0-1.3) Lymphocytes % (24.0-44.0) % Monocytes % (0.0-12.0) % Eosinophils % (0.00-5.0) % Basophils % (0.0-0.4) % Absolute Granulocytes (1.4-6.9) Basophils # (0-0.4) Sodium (137-145) mmol/L Potassium (3.5-5.1) mmol/L Chloride (98-107) mmol/L Carbon Dioxide (22-30) mmol/L Anion Gap (5-15) MEQ/L BUN (7-17) mg/dL Creatinine (0.52-1.04) mg/dL Estimated GFR ML/MIN Glucose (74-106) mg/dL Calcium (8.4-10.2) mg/dL Total Bilirubin (0.2-1.3) mg/dL AST (14-36) U/L ALT (0-35) U/L Alkaline Phosphatase (38-126) U/L Serum Total Protein (6.3-8.2) g/dL Albumin (3.5-5.0) g/dL Serum , Qual (Negative) Ur Collection Type CLEAN CATCH Urine Color YELLOW (YELLOW) Urine Appearance CLEAR (CLEAR) Urine pH 6.0 (5-6) Ur Specific [place] 1.020 (1.005-1.025) Urine Protein TRACE (Negative) Urine Ketones MODERATE (NEGATIVE) Urine Blood 250 (0-5) Chong/ul Urine Nitrite NEGATIVE (NEGATIVE) Urine Bilirubin NEGATIVE (NEGATIVE) Urine Urobilinogen NORMAL (0-1) mg/dL Ur Leukocyte Esterase NEGATIVE (NEGATIVE) Urine Microscopic RBC 0-2 (0-2) /HPF Ur Epithelial Cells MODERATE (FEW) /HPF Urine Bacteria MODERATE (NEGATIVE) /HPF Urine Mucus MODERATE (NEGATIVE) /HPF Urine Culture Reflexed YES (NO) Urine Glucose NEGATIVE (NEGATIVE) mg/dL Salicylates (2-20) mg/dL Urine Opiates Level NEGATIVE (NEGATIVE) Ur Methadone NEGATIVE (NEGATIVE) Acetaminophen (10-30) ug/ml Urine Barbiturates NEGATIVE (NEGATIVE) Ur Phencyclidine (PCP) NEGATIVE (NEGATIVE) Urine Amphetamine POSITIVE (NEGATIVE) U Benzodiazepine Level POSITIVE (NEGATIVE) Urine Cocaine NEGATIVE (NEGATIVE) Urine Marijuana (THC) POSITIVE (NEGATIVE) Ethyl Alcohol (0-10) mg/dL Specimen Received 06/14/18 1435 - Progress Progress: improved Progress Note: 06/14/18 14:17 This 33-year-old white female with history of GERD, anxiety, depression, PTSD, hepatitis C, substance abuse She is brought by the police department. She apparently had been picked up on a warrant was being taken to [facility]. Apparently the patient was felt to perhaps had been on some type of substance which is unknown and a day apparently refused to take her to [facility]. Patient is brought in handcuffs she is aware of what we're doing she will not speak to us. Patient does not have visible trauma. Will go ahead and obtain overdose labs EKG. 06/14/18 15:20 Patient's urine drug screen positive for benzodiazepines, amphetamines, THC. Patient's EKG normal sinus rhythm 89 bpm normal axis no acute ST or T wave changes essentially normal EKG. Patient's CBC within normal limits hCG is negative chemistry mild increased anion gap at 21.9 acetaminophen level less than 10 salicylate level less than 1.0 EtOH less than 10 electrolytes are essentially normal. Urinalysis essentially normal. Patient appears to be stable she has not acute distress she does not have any signs of trauma. I did have the patient's nurse inquired with the arresting officer whether the patient was talking when she was arrested he states that she can talk but chooses not to. Will go ahead and discharge patient - Departure Time of Disposition: 15:23 Departure Disposition: Halfway/Intermediate Clinical Impression: Substance abuse Condition: Fair Critical Care Time: No Referrals: SOLEDAD HUERTA [Primary Care Provider] - Additional Instructions: Follow-up with [facility] doctor or your family doctor if problems. Return for acute distress or for severe symptoms.
[2018-06-14 14:30] LABS: BASOPHIL % 0.3 % (0.0-0.4); Basophil (Absolute #) 0.02 (0-0.4); Eosinophil % 2.2 % (0.00-5.0); Eosinophil (Absolute #) 0.14 (0-0.5); Granulocyte Absolute (ANC) 3.91 (1.4-6.9); Granulocytes % 62.1 % (36.0-66.0); Hematocrit 40.6 % (35-47); Hemoglobin 13.7 gm/dl (12.0-16.0); Lymphocyte (Absolute #) 1.62 (1.0-4.6); Lymphocytes % 25.7 % (24.0-44.0); Mean Cell Volume 88.3 fl (78-100); Mean Corpuscular Hemoglobin 29.8 pg (26-32); Mean Corpuscular Hgb Concent. 33.7 g/dl (32-36); Mean Platelet Volume 8.9 fl (6-9.5); Monocyte (Absolute #) 0.61 (0.0-1.3); Monocytes % 9.7 % (0.0-12.0); Platelet Count 298 K/mm3 (150-450); Red Cell Distribution Width 14.2 % (11.5-14.0); White Blood Count 6.3 K/mm3 (4.0-10.5)
[2018-06-14 14:41] VITALS: BP 121/77
[2018-06-14 14:42] LABS: Appearance CLEAR (CLEAR)
[2018-06-14 14:43] LABS: Bacteria MODERATE /HPF (NEGATIVE); Bilirubin NEGATIVE (NEGATIVE); Blood 250 Ery/ul (0-5); Epithelial Cells MODERATE /HPF (FEW); Glucose NEGATIVE (NEGATIVE); Ketones MODERATE (NEGATIVE); Leukocyte Esterase NEGATIVE (NEGATIVE); Mucus MODERATE /HPF (NEGATIVE); Nitrite NEGATIVE (NEGATIVE); Protein,Urine Dip TRACE (Negative); RBC 0-2 /HPF (0-2); Urobilinogen NORMAL mg/dL (0-1)
[2018-06-14 14:46] LABS: ALBUMIN 5.1 g/dL (3.5-5.0); ALKALINE PHOSPHATASE 75 U/L (38-126); ANION GAP 21.9 MEQ/L (5-15); BLOOD UREA NITROGEN 22 mg/dL (7-17); CHLORIDE 103 mmol/L (98-107); Calcium 9.8 mg/dL (8.4-10.2); Carbon Dioxide 21 mmol/L (22-30); Creatinine 1 0.75 mg/dL (0.52-1.04); Glucose 97 mg/dL (74-106); Potassium 4.1 mmol/L (3.5-5.1); SGOT/AST 31 U/L (14-36); SGPT/ALT 27 U/L (0-35); SODIUM 142 mmol/L (137-145); Total Protein 8.7 g/dL (6.3-8.2)
[2018-06-14 14:48] LABS: ACETAMINOPHEN < 10 ug/ml (10-30); ETHYL ALCOHOL < 10 mg/dL (0-10); SALICYLATE < 1.0 mg/dL (2-20)
[2018-06-14 14:49] LABS: Amphetamine,Urine POSITIVE (NEGATIVE); Barbiturate,Urine NEGATIVE (NEGATIVE); Benzodiazepine,Urine POSITIVE (NEGATIVE); Cocaine,Urine NEGATIVE (NEGATIVE); Methadone,Urine NEGATIVE (NEGATIVE); Opiate,Urine NEGATIVE (NEGATIVE); PCP,Urine NEGATIVE (NEGATIVE); THC,Urine POSITIVE (NEGATIVE)
[2018-06-14 15:01] VITALS: PULSE 87
[2018-06-14 15:25] VITALS: O2SAT 99
== END 2018-06-14 15:33 | disposition home or self-care (01) ==
LOC: ED 14:03
DX: F19.10 Other psychoactive substance abuse, uncomplicated (principal)
CPT/HCPCS: 36415; 80053; 80307; 81000; 84703; 85025; 87086; 93005; 99284; G0481; G0480

== ENCOUNTER 2019-05-05 23:24 | Emergency (ER) | payer SELFPAY ==
[2019-05-05] MEDS ORDERED: Haldol 5 MG ONE (23:32)
[2019-05-05] MEDS ORDERED: Sodium Chloride 0.9% 1000 ML 1,000 ML IV STA (23:45)
[2019-05-05] MEDS ORDERED: Haldol 5 MG IM ONE (23:45)
[2019-05-05] MEDS ORDERED: Zofran 4 MG/2 ML VIAL IV ONE (23:49)
[2019-05-05] MEDS ORDERED: Ativan 2 MG/1 ML VIAL IV ONE (23:49)
--- NOTE | 2019-05-06 | ERPHSYRPT ---
- History of Present Illness Time Seen by Provider: 05/05/19 23:45 Source: patient, police Patient Subjective Stated Complaint: Pt refuses to answer questions, pt oriented to self, pt is paranoid and appears to be hallucinating, not able to connect thoughts. Pt bib police for medical clearance. police were called for a person who was behaving bizarre, found pt laying in the grass alongside road. when she saw police they report pt ran to nearby hotel and went into a room that was not hers and locked the door. Police had to break down door to get pt out. Triage Nursing Assessment: [place]/warm/diaphoretic, dilated pupils, alert and oriented to self only, pt is talking about things that do not make sense to situation or conversations or questions asked of her. Pt still handcuffed by police at this time. Pt had to be dragged from police car by police after refusing to exit. Physician History: 33 y/o white female brought into ED by police for bizarre hallucinating behavior. pt agitated. pt spitting and cursing. brought in for medical clearance. denies illicit drug use. pt a danger to herself because her not understanding her behavior and her environment around her. Timing/Duration: today Severity of Symptoms-Max: moderate Severity of Symptoms-Current: moderate Context related to: other (psychiatric condition and likely illicit drug use) Associated Symptoms: angry, agitated, hostile, hallucinating Previous symptoms: same symptoms as today Allergies/Adverse Reactions: Unable to Assess Allergy (Verified 06/14/18 15:28) Hx Tetanus, Diphtheria Vaccination/Date Given: Yes Hx Influenza Vaccination/Date Given: No Hx Pneumococcal Vaccination/Date Given: No - Past Medical History Pertinent Past Medical History: Yes Neurological History: No Pertinent History ENT History: No Pertinent History Cardiac History: No Pertinent History Respiratory History: No Pertinent History Endocrine Medical History: No Pertinent History Musculoskeletal History: No Pertinent History GI Medical History: GERD History: No Pertinent History Psycho-Social History: Anxiety, Depression, Other Female Reproductive Disorders: No Pertinent History Other Medical History: POST TRAUMATIC STRESS DISORDER. HEPATITIS C - Past Surgical History Past Surgical History: Yes Neuro Surgical History: No Pertinent History Cardiac: No Pertinent History Respiratory: No Pertinent History Gastrointestinal: Appendectomy Genitourinary: No Pertinent History Musculoskeletal: No Pertinent History Female Surgical History: No Pertinent History - Social History Smoking Status: Unknown if ever smoked How long have you smoked: 5 years Exposure to second hand smoke: No Alcohol Use: Socially Drug Use: none Patient Lives Alone: Yes (pt states she is homeless) Significant Family History: no pertinent family hx - Female History Hx Now: No - Review of Systems Constitutional: No Symptoms Eyes: No Symptoms Ears, Nose, & Throat: No Symptoms Respiratory: No Symptoms Cardiac: No Symptoms Abdominal/Gastrointestinal: No Symptoms Genitourinary Symptoms: No Symptoms Musculoskeletal: No Symptoms Skin: No Symptoms Psychological: Emotional Lability, Hallucinations, Mood Changes Endocrine: No Symptoms Hematologic/Lymphatic: No Symptoms Immunological/Allergic: No Symptoms All Other Systems: Reviewed and Negative - Nursing Vital Signs Nursing Vital Signs: Initial Vital Signs Pulse Rate 92 H 05/06/19 01:03 Respiratory Rate 14 05/06/19 01:03 Blood Pressure 105/69 05/06/19 01:03 O2 Sat by Pulse Oximetry 97 05/06/19 01:03 - Physical Exam General Appearance: other (agitated and hostile) Neck Exam: normal inspection, non-tender, supple, full range of motion Respiratory Exam: normal breath sounds, lungs clear, airway intact, No chest tenderness, No respiratory distress Cardiovascular Exam: regular rate/rhythm, normal heart sounds, normal peripheral pulses Gastrointestinal/Abdominal Exam: soft, normal bowel sounds, No tenderness Extremities Exam: normal inspection, normal range of motion, No evidence of injury Current Suicidality: denies suicide plan Neurological Exam: agitated, anxious Appearance: disheveled, impaired insight Behavior/Eye Contact/Speech: threatening eye contact, belligerent, compulsive, alert & uncooperative, intoxicated appearance Thoughts/Hallucinations: auditory hallucinations, delusions, paranoid Skin Exam: normal color, warm, dry SpO2 Interpretation: normal O2 Delivery: Room Air - Course Nursing assessment & vital signs reviewed: Yes Ordered Tests: Active Orders 24 hr Category Date Time Status Clean Catch Urine Specimen STAT Care 05/05/19 23:45 Active IV Insertion STAT Care 05/05/19 23:45 Active CBC W DIFF Stat Lab 05/05/19 23:45 Completed CULTURE,URINE Stat Lab 05/06/19 01:50 Received Manual Differential NC Stat Lab 05/06/19 01:00 Completed UA W/RFX UR CULTURE Stat Lab 05/06/19 01:50 Completed Urine Triage Profile Stat Lab 05/06/19 01:50 Completed Medication Summary Generic Name Dose Route Start Last Admin Trade Name Skip PRN Reason Stop Dose Admin Ciprofloxacin 500 mg 05/06/19 03:08 Cipro 500 Mg PO 05/06/19 03:09 STAT ONE Potassium Chloride 10 meq 05/06/19 03:07 Klor Con 10 Meq PO 05/06/19 03:08 STAT ONE Discontinued Medications Generic Name Dose Route Start Last Admin Trade Name Skip PRN Reason Stop Dose Admin Ciprofloxacin Confirm 05/06/19 03:07 Cipro 500 Mg Administered 05/06/19 03:08 Dose 500 mg .ROUTE .STK-MED ONE Haloperidol Lactate Confirm 05/05/19 23:32 Haldol 5 Mg Administered 05/05/19 23:33 Dose 10 mg .ROUTE .STK-MED ONE Haloperidol Lactate 10 mg 05/05/19 23:45 05/05/19 23:38 Haldol 5 Mg IM 05/05/19 23:46 10 mg STAT ONE Administration Sodium Chloride 1,000 mls @ 999 mls/hr 05/05/19 23:45 05/06/19 01:13 Sodium Chloride 0.9% 1000 Ml IV 05/06/19 00:45 Not Given .Q1H1M STA Lorazepam 2 mg 05/05/19 23:49 05/06/19 00:30 Ativan 2 Mg/1 Ml Vial IV 05/06/19 00:09 Not Given STAT ONE Lorazepam Confirm 05/06/19 00:07 Ativan 2 Mg/1 Ml Vial Administered 05/06/19 00:08 Dose 2 mg .ROUTE .STK-MED ONE Lorazepam 2 mg 05/06/19 00:09 05/06/19 00:15 Ativan 2 Mg/1 Ml Vial IM 05/06/19 00:10 1 mg STAT ONE Administration Ondansetron HCl 4 mg 05/05/19 23:49 05/06/19 01:13 Zofran 4 Mg/2 Ml Vial IV 05/05/19 23:50 Not Given STAT ONE Potassium Chloride Confirm 05/06/19 03:06 Klor Con 10 Meq Administered 05/06/19 03:07 Dose 10 meq PO .STK-MED ONE Lab/Rad Data: Laboratory Result Diagrams 05/06/19 01:00 05/05/19 01:00 Laboratory Results 05/06/19 05/06/19 05/06/19 Range/Units 01:50 01:50 01:00 WBC (4.0-10.5) K/mm3 RBC (4.1-5.4) M/mm3 Hgb (12.0-16.0) gm/dl Hct (35-47) % MCV (78-100) fl MCH (26-32) pg MCHC (32-36) g/dl RDW (11.5-14.0) % Plt Count (150-450) K/mm3 MPV (6-9.5) fl Sodium (137-145) mmol/L Potassium (3.5-5.1) mmol/L Chloride (98-107) mmol/L Carbon Dioxide (22-30) mmol/L Anion Gap (5-15) MEQ/L BUN (7-17) mg/dL Creatinine (0.52-1.04) mg/dL Estimated GFR ML/MIN Glucose (74-106) mg/dL Calcium (8.4-10.2) mg/dL Total Bilirubin (0.2-1.3) mg/dL AST (14-36) U/L ALT (0-35) U/L Alkaline Phosphatase (38-126) U/L Serum Total Protein (6.3-8.2) g/dL Albumin (3.5-5.0) g/dL Serum , Qual NEGATIVE (Negative) Urine Color YELLOW (YELLOW) Urine Appearance CLOUDY (CLEAR) Urine pH 6.0 (5-6) Ur Specific [place] 1.010 (1.005-1.025) Urine Protein 30 (Negative) Urine Ketones NEGATIVE (NEGATIVE) Urine Blood SMALL (0-5) Chong/ul Urine Nitrite NEGATIVE (NEGATIVE) Urine Bilirubin NEGATIVE (NEGATIVE) Urine Urobilinogen NEGATIVE (0-1) mg/dL Ur Leukocyte Esterase MODERATE (NEGATIVE) Urine WBC (Auto) 51-100 (0-5) /HPF Urine RBC (Auto) 11-15 (0-2) /HPF U Hyaline Cast (Auto) 3-5 (0-2) /LPF U Epithel Cells (Auto) MODERATE (FEW) /HPF Urine Bacteria (Auto) MODERATE (NEGATIVE) /HPF U Non-Squamous Epi Cells RARE (FEW) /HPF Other Casts (Auto) 5-10 (NEGATIVE) /LPF Urine Mucus (Auto) SLIGHT (NEGATIVE) /HPF Urine Culture Reflexed YES (NO) Urine Glucose NEGATIVE (NEGATIVE) mg/dL Salicylates (2-20) mg/dL Urine Opiates Level NEGATIVE (NEGATIVE) Ur Methadone NEGATIVE (NEGATIVE) Acetaminophen (10-30) ug/ml Urine Barbiturates NEGATIVE (NEGATIVE) Ur Phencyclidine (PCP) NEGATIVE (NEGATIVE) Urine Amphetamine POSITIVE (NEGATIVE) U Benzodiazepine Level NEGATIVE (NEGATIVE) Urine Cocaine NEGATIVE (NEGATIVE) Urine Marijuana (THC) POSITIVE (NEGATIVE) Ethyl Alcohol (0-10) mg/dL 05/06/19 05/05/19 Range/Units 01:00 01:00 WBC 12.3 H (4.0-10.5) K/mm3 RBC 4.44 (4.1-5.4) M/mm3 Hgb 13.0 (12.0-16.0) gm/dl Hct 37.6 (35-47) % MCV 84.7 (78-100) fl MCH 29.3 (26-32) pg MCHC 34.6 (32-36) g/dl RDW 13.5 (11.5-14.0) % Plt Count 386 (150-450) K/mm3 MPV 10.4 H (6-9.5) fl Sodium 136 L (137-145) mmol/L Potassium 2.9 L* (3.5-5.1) mmol/L Chloride 98 (98-107) mmol/L Carbon Dioxide 22 (22-30) mmol/L Anion Gap 18.4 H (5-15) MEQ/L BUN 16 (7-17) mg/dL Creatinine 1.14 H (0.52-1.04) mg/dL Estimated GFR 59.1 ML/MIN Glucose 104 (74-106) mg/dL Calcium 10.5 H (8.4-10.2) mg/dL Total Bilirubin 0.90 (0.2-1.3) mg/dL AST 51 H (14-36) U/L ALT 31 (0-35) U/L Alkaline Phosphatase 87 (38-126) U/L Serum Total Protein 8.5 H (6.3-8.2) g/dL Albumin 4.7 (3.5-5.0) g/dL Serum , Qual (Negative) Urine Color (YELLOW) Urine Appearance (CLEAR) Urine pH (5-6) Ur Specific [place] (1.005-1.025) Urine Protein (Negative) Urine Ketones (NEGATIVE) Urine Blood (0-5) Chong/ul Urine Nitrite (NEGATIVE) Urine Bilirubin (NEGATIVE) Urine Urobilinogen (0-1) mg/dL Ur Leukocyte Esterase (NEGATIVE) Urine WBC (Auto) (0-5) /HPF Urine RBC (Auto) (0-2) /HPF U Hyaline Cast (Auto) (0-2) /LPF U Epithel Cells (Auto) (FEW) /HPF Urine Bacteria (Auto) (NEGATIVE) /HPF U Non-Squamous Epi Cells (FEW) /HPF Other Casts (Auto) (NEGATIVE) /LPF Urine Mucus (Auto) (NEGATIVE) /HPF Urine Culture Reflexed (NO) Urine Glucose (NEGATIVE) mg/dL Salicylates < 1.0 L (2-20) mg/dL Urine Opiates Level (NEGATIVE) Ur Methadone (NEGATIVE) Acetaminophen < 10 L (10-30) ug/ml Urine Barbiturates (NEGATIVE) Ur Phencyclidine (PCP) (NEGATIVE) Urine Amphetamine (NEGATIVE) U Benzodiazepine Level (NEGATIVE) Urine Cocaine (NEGATIVE) Urine Marijuana (THC) (NEGATIVE) Ethyl Alcohol < 10 (0-10) mg/dL - Progress Progress: improved, re-examined Progress Note: 05/06/19 03:10 after haldol, pt calm enough to allow lab draw and obtaining urine. no iv allowed. pt could not recall allergies. Counseled pt/family regarding: lab results, diagnosis, need for follow-up - Departure Departure Disposition: Longterm/Longterm Clinical Impression: Illicit drug use, Agitation requiring sedation protocol, UTI (urinary tract infection), Hypokalemia, Medical clearance for incarceration Condition: Stable Critical Care Time: Yes Critical Care Time(excluding separately billable procedures): 30-74 minutes Referrals: SOLEDAD HUERTA [ACTIVE STAFF] - Additional Instructions: drink plenty of fluids. follow up with primary doctor for further management Prescriptions: Ciprofloxacin [Cipro 500 MG] 500 mg PO BID #14 tablet
[2019-05-06] MEDS ORDERED: Ativan 2 MG/1 ML VIAL ONE (00:07)
[2019-05-06] MEDS ORDERED: Ativan 2 MG/1 ML VIAL IM ONE (00:09)
[2019-05-06 01:04] VITALS: BP 105/69; O2SAT 97
[2019-05-06 01:29] LABS: Hematocrit 37.6 % (35-47); Mean Cell Volume 84.7 fl (78-100); Mean Corpuscular Hemoglobin 29.3 pg (26-32); Mean Corpuscular Hgb Concent. 34.6 g/dl (32-36); Mean Platelet Volume 10.4 fl (6-9.5); Platelet Count 386 K/mm3 (150-450); Red Blood Count 4.44 M/mm3 (4.1-5.4); Red Cell Distribution Width 13.5 % (11.5-14.0); White Blood Count 12.3 K/mm3 (4.0-10.5)
[2019-05-06 01:44] LABS: ALBUMIN 4.7 g/dL (3.5-5.0); ALKALINE PHOSPHATASE 87 U/L (38-126); ANION GAP 18.4 MEQ/L (5-15); BLOOD UREA NITROGEN 16 mg/dL (7-17); CHLORIDE 98 mmol/L (98-107); Calcium 10.5 mg/dL (8.4-10.2); Carbon Dioxide 22 mmol/L (22-30); Creatinine 1 1.14 mg/dL (0.52-1.04); Glucose 104 mg/dL (74-106); SGOT/AST 51 U/L (14-36); SGPT/ALT 31 U/L (0-35); SODIUM 136 mmol/L (137-145); Total Protein 8.5 g/dL (6.3-8.2)
[2019-05-06 01:53] LABS: ACETAMINOPHEN < 10 ug/ml (10-30); ETHYL ALCOHOL < 10 mg/dL (0-10); Potassium 2.9 mmol/L (3.5-5.1); SALICYLATE < 1.0 mg/dL (2-20)
[2019-05-06 02:07] LABS: Appearance CLOUDY (CLEAR); Bacteria MODERATE /HPF (NEGATIVE); Bilirubin NEGATIVE (NEGATIVE); Blood SMALL Ery/ul (0-5); Epithelial Cells MODERATE /HPF (FEW); Glucose NEGATIVE (NEGATIVE); Ketones NEGATIVE (NEGATIVE); Leukocyte Esterase MODERATE (NEGATIVE); Mucus SLIGHT /HPF (NEGATIVE); Nitrite NEGATIVE (NEGATIVE); Non-Squamous Epithelial Cells RARE /HPF (FEW); Protein,Urine Dip 30 (Negative); Urobilinogen NEGATIVE mg/dL (0-1); WBC 51-100 /HPF (0-5)
[2019-05-06 02:17] LABS: Barbiturate,Urine NEGATIVE (NEGATIVE); Benzodiazepine,Urine NEGATIVE (NEGATIVE); Cocaine,Urine NEGATIVE (NEGATIVE); Methadone,Urine NEGATIVE (NEGATIVE); Opiate,Urine NEGATIVE (NEGATIVE); PCP,Urine NEGATIVE (NEGATIVE); THC,Urine POSITIVE (NEGATIVE)
[2019-05-06 02:30] VITALS: PULSE 94
[2019-05-06 02:57] LABS: Amphetamine,Urine POSITIVE (NEGATIVE)
[2019-05-06] MEDS ORDERED: Klor Con 10 MEQ PO ONE ×2 (03:06→03:07)
[2019-05-06] MEDS ORDERED: Cipro 500 MG ONE (03:07)
[2019-05-06] MEDS ORDERED: Cipro 500 MG PO ONE (03:08)
[2019-05-06 04:55] LABS: BAND 3 % (0.0-2.0); Lymphocytes 23 % (24-44); Monocyte 2 % (0.0-12.0); Neutrophils 72 % (36.0-66.0); Total Cells Counted 100
[2019-05-06 04:56] LABS: ANISOCYTOSIS 2+; Hypochromia 2+; Platelet Estimate NORMAL (NORMAL); Poikilocytosis 1+
== END 2019-05-06 03:20 | disposition home or self-care (01) ==
LOC: ED 23:24
DX: F19.90 Other psychoactive substance use, unspecified, uncomplicated (principal); R45.1 Restlessness and agitation; N39.0 Urinary tract infection, site not specified; E87.6 Hypokalemia; Z02.89 Encounter for other administrative examinations
CPT/HCPCS: 36415; 80053; 80307; 81001; 81025; 85025; 87086; 96372; 99284; G0481; 87077; 87186; J1630; J2060; A9270-GY; G0480

== ENCOUNTER 2020-04-20 21:41 | Emergency (ER) | payer SELFPAY ==
[2020-04-20 21:50] VITALS: O2SAT 97
[2020-04-20 22:48] LABS: Absolute Neutrophil Ct (ANC) 6.04 (1.4-6.9); BASOPHIL % 0.2 % (0.0-0.4); Basophil (Absolute #) 0.02 (0-0.4); Eosinophil % 0.2 % (0.00-5.0); Eosinophil (Absolute #) 0.02 (0-0.5); Hematocrit 37.4 % (35-47); Hemoglobin 12.6 gm/dl (12.0-16.0); Lymphocyte (Absolute #) 2.07 (1.0-4.6); Lymphocytes % 22.9 % (24.0-44.0); Mean Corpuscular Hemoglobin 29.3 pg (26-32); Mean Corpuscular Hgb Concent. 33.7 g/dl (32-36); Mean Platelet Volume 9.2 fl (7.5-11.0); Monocyte (Absolute #) 0.87 (0.0-1.3); Monocytes % 9.6 % (0.0-12.0); Neutrophil % 67.1 % (36.0-66.0); Platelet Count 394 K/mm3 (150-450); Red Cell Distribution Width 13.4 % (11.5-14.0)
[2020-04-20 22:55] LABS: Appearance SLIGHTLY CLOUDY (CLEAR); Bacteria MODERATE /HPF (NEGATIVE); Bilirubin NEGATIVE (NEGATIVE); Blood NEGATIVE Ery/ul (0-5); Epithelial Cells RARE /HPF (FEW); Glucose NEGATIVE (NEGATIVE); Ketones NEGATIVE (NEGATIVE); Leukocyte Esterase TRACE (NEGATIVE); Mucus SLIGHT /HPF (NEGATIVE); Nitrite POSITIVE (NEGATIVE); Protein,Urine Dip NEGATIVE (Negative); RBC 0-2 /HPF (0-2); Specific Gravity 1.015 (1.005-1.025); Urobilinogen NEGATIVE mg/dL (0-1)
[2020-04-20 23:03] LABS: Amphetamine,Urine POSITIVE (NEGATIVE); Barbiturate,Urine NEGATIVE (NEGATIVE); Benzodiazepine,Urine NEGATIVE (NEGATIVE); Cocaine,Urine NEGATIVE (NEGATIVE); Methadone,Urine NEGATIVE (NEGATIVE); Opiate,Urine NEGATIVE (NEGATIVE); PCP,Urine NEGATIVE (NEGATIVE); THC,Urine POSITIVE (NEGATIVE)
[2020-04-20 23:06] LABS: ACETAMINOPHEN < 10 ug/ml (10-30); ALBUMIN 4.4 g/dL (3.5-5.0); ALKALINE PHOSPHATASE 63 U/L (38-126); ANION GAP 11.2 MEQ/L (5-15); BLOOD UREA NITROGEN 11 mg/dL (7-17); CHLORIDE 105 mmol/L (98-107); Calcium 9.8 mg/dL (8.4-10.2); Carbon Dioxide 26 mmol/L (22-30); Creatinine 1 0.64 mg/dL (0.52-1.04); ETHYL ALCOHOL < 10 mg/dL (0-10); Glucose 116 mg/dL (74-106); Potassium 4.1 mmol/L (3.5-5.1); SALICYLATE < 1.0 mg/dL (2-20); SGOT/AST 28 U/L (14-36); SGPT/ALT 24 U/L (0-35); SODIUM 138 mmol/L (137-145); Total Protein 7.8 g/dL (6.3-8.2)
[2020-04-20] MEDS ORDERED: Sodium Chloride 0.9% 1000 ML 1,000 ML ONE (23:13)
[2020-04-20] MEDS: Sodium Chloride 0.9% 1000 ML 1,000 ML IV STA ×2 (23:14→23:35)
[2020-04-20] MEDS ORDERED: Rocephin 1000 MG INJ IM ONE (23:27)
[2020-04-20] MEDS ORDERED: Rocephin 1000 MG INJ ONE (23:27)
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
[2020-04-20 23:37] VITALS: BP 133/82; PULSE 125
--- NOTE | 2020-04-21 08:42 | XRAY ---
Indication: Altered mental status. Multiple contiguous axial images obtained through the head without contrast. Comparison: May 28, 2011. Images through base of the brain slightly degraded by motion artifact. No gross acute intracranial hemorrhage, abnormal extra-axial fluid collection, or mass effect. Fourth ventricle is midline without hydrocephalus. Gastelmu-white matter differentiation preserved. Bony calvarium grossly intact. Visualized paranasal sinuses and mastoid air cells are clear. Impression: Motion artifact. No gross acute intracranial abnormalities. Comment: Preliminary interpretation was made by [facility]. No critical discrepancy.
== END 2020-04-20 23:46 | disposition home or self-care (01) ==
LOC: ED 21:41
DX: Z02.89 Encounter for other administrative examinations (principal); N39.0 Urinary tract infection, site not specified; B19.20 Unspecified viral hepatitis C without hepatic coma; F43.10 Post-traumatic stress disorder, unspecified; F19.90 Other psychoactive substance use, unspecified, uncomplicated
CPT/HCPCS: 36000; 36415; 70450; 80053; 80307; 81001; 84703; 85025; 87077; 87086; 87186; 93005; 96372; 99284; J0696; G0480

== ENCOUNTER 2021-10-08 02:07 | Emergency (ER) | payer OTHER ==
[2021-10-08] MEDS ORDERED: Haldol 5 MG IM ONE (02:33)
[2021-10-08] MEDS ORDERED: Haldol 5 MG ONE ×2 (02:39→02:41)
--- NOTE | 2021-10-08 02:39 | ERPHSYRPT ---
- History of Present Illness Source: patient, police Exam Limitations: clinical condition, intoxication Timing/Duration: today Severity of Symptoms-Max: severe Severity of Symptoms-Current: severe Hx Tetanus, Diphtheria Vaccination/Date Given: Yes Hx Influenza Vaccination/Date Given: No Hx Pneumococcal Vaccination/Date Given: No <HERMINIO MADERA - Last Filed: 10/08/21 06:37> <[address] - Last Filed: 10/08/21 11:22> - History of Present Illness Time Seen by Provider: 10/08/21 02:36 Physician History: Patient is a 36-year-old female who presents with an immediate care home from law enforcement. She is believed to be intoxicated with probable meth although bath salts are a possibility as well. She has been in and out of assisted and in and out of psych facilities many times in the past. Patient had been staying with her parents when she apparently started using again and they called the police. (HERMINIO MADERA) Allergies/Adverse Reactions: Unable to Assess Allergy (Verified 10/08/21 03:57) - Past Medical History Pertinent Past Medical History: Yes Neurological History: No Pertinent History ENT History: No Pertinent History Cardiac History: No Pertinent History Respiratory History: No Pertinent History Endocrine Medical History: No Pertinent History Musculoskeletal History: No Pertinent History GI Medical History: GERD History: No Pertinent History Psycho-Social History: Anxiety, Depression, Other Female Reproductive Disorders: No Pertinent History Other Medical History: POST TRAUMATIC STRESS DISORDER. HEPATITIS C - Past Surgical History Past Surgical History: Yes Neuro Surgical History: No Pertinent History Cardiac: No Pertinent History Respiratory: No Pertinent History Gastrointestinal: Appendectomy Genitourinary: No Pertinent History Musculoskeletal: No Pertinent History Female Surgical History: No Pertinent History - Social History Smoking Status: Unknown if ever smoked How long have you smoked: 5 years Exposure to second hand smoke: No Alcohol Use: Socially Drug Use: none Patient Lives Alone: Yes (pt states she is homeless) Significant Family History: no pertinent family hx <HERMINIO MADERA - Last Filed: 10/08/21 06:37> - Review of Systems All Other Systems: Unable due to condition <HERMINIO MADERA - Last Filed: 10/08/21 06:37> - Physical Exam General Appearance: moderate distress Eyes, Ears, Nose, Throat Exam: normal ENT inspection, moist mucous membranes Neck Exam: normal inspection, non-tender, supple Respiratory Exam: normal breath sounds, lungs clear, No respiratory distress Cardiovascular Exam: regular rate/rhythm, tachycardia Gastrointestinal/Abdominal Exam: soft, normal bowel sounds Extremities Exam: normal inspection, normal range of motion 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, agitated, anxious Appearance: impaired insight, No appropriate insight Behavior/Eye Contact/Speech: avoids eye contact, increased rate of speech, belligerent, compulsive, uncooperative, agitated, alert & uncooperative, intoxicated appearance Thoughts/Hallucinations: flight of ideas, incoherent, No normal thought pattern Skin Exam: normal color, warm, dry SpO2 Interpretation: normal SpO2: 99 O2 Delivery: Room Air <SANTYHERMINIO - Last Filed: 10/08/21 06:37> - Nursing Vital Signs Nursing Vital Signs: Initial Vital Signs Temperature 97.6 F 10/08/21 02:11 Pulse Rate 120 H 10/08/21 02:11 Respiratory Rate 22 10/08/21 02:11 Blood Pressure 143/107 10/08/21 02:11 O2 Sat by Pulse Oximetry 100 10/08/21 02:11 Pain Scale Pain Intensity 0 - Course Nursing assessment & vital signs reviewed: Yes <HERMINIO MADERA - Last Filed: 10/08/21 06:37> Ordered Tests: Active Orders 24 hr Category Date Time Status ACETAMINOPHEN Stat Lab 10/08/21 03:37 Completed CBC W DIFF Stat Lab 10/08/21 03:37 Completed CMP Stat Lab 10/08/21 03:37 Completed ETHYL ALCOHOL Stat Lab 10/08/21 03:37 Completed HCG QUALITATIVE,SERUM Routine Lab 10/08/21 11:15 Received SALICYLATE Stat Lab 10/08/21 03:37 Completed UA W/RFX UR CULTURE Stat Lab 10/08/21 05:25 Completed Urine Triage Profile Stat Lab 10/08/21 05:25 Completed Medication Summary Discontinued Medications Generic Name Dose Route Start Last Admin Trade Name Freq PRN Reason Stop Dose Admin Haloperidol Lactate 5 mg 10/08/21 02:33 10/08/21 02:47 Haloperidol Lactate 5 Mg/Ml Vial IM 10/08/21 02:34 5 mg STAT ONE Administration Haloperidol Lactate Confirm 10/08/21 02:39 Haloperidol Lactate 5 Mg/Ml Vial Administered 10/08/21 02:40 Dose 5 mg .ROUTE .STK-MED ONE Haloperidol Lactate Confirm 10/08/21 02:41 Haloperidol Lactate 5 Mg/Ml Vial Administered 10/08/21 02:42 Dose 5 mg .ROUTE .K-MED ONE Lab/Rad Data: Laboratory Result Diagrams 10/08/21 03:37 10/08/21 03:37 Laboratory Results 10/08/21 10/08/21 10/08/21 Range/Units 05:25 05:25 03:37 WBC (4.0-10.5) K/mm3 RBC (4.1-5.4) M/mm3 Hgb (12.0-16.0) gm/dl Hct (35-47) % MCV (78-100) fl MCH (26-32) pg MCHC (32-36) g/dl RDW (11.5-14.0) % Plt Count (150-450) K/mm3 MPV (7.5-11.0) fl Gran % (36.0-66.0) % Eos # (Auto) (0-0.5) Absolute Lymphs (auto) (1.0-4.6) Absolute Monos (auto) (0.0-1.3) Lymphocytes % (24.0-44.0) % Monocytes % (0.0-12.0) % Eosinophils % (0.00-5.0) % Basophils % (0.0-0.4) % Absolute Granulocytes (1.4-6.9) Basophils # (0-0.4) Sodium 138 (137-145) mmol/L Potassium 4.7 (3.5-5.1) mmol/L Chloride 102 (98-107) mmol/L Carbon Dioxide 26 (22-30) mmol/L Anion Gap 14.8 (5-15) MEQ/L BUN 23 H (7-17) mg/dL Creatinine 0.89 (0.52-1.04) mg/dL Estimated GFR > 60.0 ML/MIN Glucose 105 (74-106) mg/dL Calcium 9.9 (8.4-10.2) mg/dL Total Bilirubin 0.90 (0.2-1.3) mg/dL AST 57 H (14-36) U/L ALT 94 H (0-35) U/L Alkaline Phosphatase 106 (38-126) U/L Serum Total Protein 8.2 (6.3-8.2) g/dL Albumin 4.8 (3.5-5.0) g/dL Urine Color YELLOW (YELLOW) Urine Appearance CLEAR (CLEAR) Urine pH 6.0 (5-6) Ur Specific [place] 1.020 (1.005-1.025) Urine Protein NEGATIVE (Negative) Urine Ketones NEGATIVE (NEGATIVE) Urine Blood NEGATIVE (0-5) Chong/ul Urine Nitrite NEGATIVE (NEGATIVE) Urine Bilirubin NEGATIVE (NEGATIVE) Urine Urobilinogen NEGATIVE (0-1) mg/dL Ur Leukocyte Esterase NEGATIVE (NEGATIVE) Urine WBC (Auto) 0-2 (0-5) /HPF Urine RBC (Auto) 0-2 (0-2) /HPF U Epithel Cells (Auto) NONE (FEW) /HPF Urine Bacteria (Auto) NONE (NEGATIVE) /HPF Urine Mucus (Auto) SLIGHT (NEGATIVE) /HPF Urine Culture Reflexed NO (NO) Urine Glucose NEGATIVE (NEGATIVE) mg/dL Salicylates < 1.0 L (2-20) mg/dL Urine Opiates Level NEGATIVE (NEGATIVE) Ur Methadone NEGATIVE (NEGATIVE) Acetaminophen < 10 L (10-30) ug/ml Urine Barbiturates NEGATIVE (NEGATIVE) Ur Phencyclidine (PCP) NEGATIVE (NEGATIVE) Urine Amphetamine POSITIVE (NEGATIVE) U Benzodiazepine Level POSITIVE (NEGATIVE) Urine Cocaine NEGATIVE (NEGATIVE) Urine Marijuana (THC) POSITIVE (NEGATIVE) Ethyl Alcohol < 10 (0-10) mg/dL 10/08/21 Range/Units 03:37 WBC 13.0 H (4.0-10.5) K/mm3 RBC 4.48 (4.1-5.4) M/mm3 Hgb 12.6 (12.0-16.0) gm/dl Hct 39.5 (35-47) % MCV 88.2 (78-100) fl MCH 28.1 (26-32) pg MCHC 31.9 L (32-36) g/dl RDW 15.1 H (11.5-14.0) % Plt Count 478 H (150-450) K/mm3 MPV 8.6 (7.5-11.0) fl Gran % 78.0 H (36.0-66.0) % Eos # (Auto) 0.02 (0-0.5) Absolute Lymphs (auto) 1.68 (1.0-4.6) Absolute Monos (auto) 1.13 (0.0-1.3) Lymphocytes % 12.9 L (24.0-44.0) % Monocytes % 8.7 (0.0-12.0) % Eosinophils % 0.2 (0.00-5.0) % Basophils % 0.2 (0.0-0.4) % Absolute Granulocytes 10.15 H (1.4-6.9) Basophils # 0.03 (0-0.4) Sodium (137-145) mmol/L Potassium (3.5-5.1) mmol/L Chloride (98-107) mmol/L Carbon Dioxide (22-30) mmol/L Anion Gap (5-15) MEQ/L BUN (7-17) mg/dL Creatinine (0.52-1.04) mg/dL Estimated GFR ML/MIN Glucose (74-106) mg/dL Calcium (8.4-10.2) mg/dL Total Bilirubin (0.2-1.3) mg/dL AST (14-36) U/L ALT (0-35) U/L Alkaline Phosphatase (38-126) U/L Serum Total Protein (6.3-8.2) g/dL Albumin (3.5-5.0) g/dL Urine Color (YELLOW) Urine Appearance (CLEAR) Urine pH (5-6) Ur Specific [place] (1.005-1.025) Urine Protein (Negative) Urine Ketones (NEGATIVE) Urine Blood (0-5) Chong/ul Urine Nitrite (NEGATIVE) Urine Bilirubin (NEGATIVE) Urine Urobilinogen (0-1) mg/dL Ur Leukocyte Esterase (NEGATIVE) Urine WBC (Auto) (0-5) /HPF Urine RBC (Auto) (0-2) /HPF U Epithel Cells (Auto) (FEW) /HPF Urine Bacteria (Auto) (NEGATIVE) /HPF Urine Mucus (Auto) (NEGATIVE) /HPF Urine Culture Reflexed (NO) Urine Glucose (NEGATIVE) mg/dL Salicylates (2-20) mg/dL Urine Opiates Level (NEGATIVE) Ur Methadone (NEGATIVE) Acetaminophen (10-30) ug/ml Urine Barbiturates (NEGATIVE) Ur Phencyclidine (PCP) (NEGATIVE) Urine Amphetamine (NEGATIVE) U Benzodiazepine Level (NEGATIVE) Urine Cocaine (NEGATIVE) Urine Marijuana (THC) (NEGATIVE) Ethyl Alcohol (0-10) mg/dL - Progress Progress: unchanged <MANSHIP,HERMINIO - Last Filed: 10/08/21 06:37> - Progress Counseled pt/family regarding: lab results, diagnosis <[address] - Last Filed: 10/08/21 11:22> - Progress Progress Note: 10/08/21 08:00 Patient is checked out to me at shift change from Dr. Madera with pending psychiatric evaluation. Patient has been medically cleared by Dr. Madera. On my evaluation patient is sleeping comfortably, and did have received a dose of Haldol. Paperwork is faxed to [facility] and they will do telE psych evaluation. 10/08/21 11:20 Patient is evaluated by [facility] and is recommended inpatient behavioral health further evaluation. Patient is placed on hold for 72-hour, plan discussed with patient and will be transferred via EMS. (DEIRDRE STRE[address]) - Departure Departure Disposition: Transfer Critical Care Time: No <HERMINIO MADERA - Last Filed: 10/08/21 06:37> <[address] - Last Filed: 10/08/21 11:22> - Departure Clinical Impression: Amphetamine-induced psychotic disorder, with delusions Condition: Fair Referrals: PERRI BREWSTER MD [Primary Care Provider] - Follow up/PCP as directed
[2021-10-08 03:40] LABS: Absolute Neutrophil Ct (ANC) 10.15 (1.4-6.9); BASOPHIL % 0.2 % (0.0-0.4); Basophil (Absolute #) 0.03 (0-0.4); Eosinophil % 0.2 % (0.00-5.0); Eosinophil (Absolute #) 0.02 (0-0.5); Hematocrit 39.5 % (35-47); Hemoglobin 12.6 gm/dl (12.0-16.0); Lymphocyte (Absolute #) 1.68 (1.0-4.6); Lymphocytes % 12.9 % (24.0-44.0); Mean Cell Volume 88.2 fl (78-100); Mean Corpuscular Hemoglobin 28.1 pg (26-32); Mean Corpuscular Hgb Concent. 31.9 g/dl (32-36); Mean Platelet Volume 8.6 fl (7.5-11.0); Monocyte (Absolute #) 1.13 (0.0-1.3); Monocytes % 8.7 % (0.0-12.0); Platelet Count 478 K/mm3 (150-450); Red Blood Count 4.48 M/mm3 (4.1-5.4); Red Cell Distribution Width 15.1 % (11.5-14.0)
[2021-10-08 04:03] LABS: ACETAMINOPHEN < 10 ug/ml (10-30); ALBUMIN 4.8 g/dL (3.5-5.0); ALKALINE PHOSPHATASE 106 U/L (38-126); ANION GAP 14.8 MEQ/L (5-15); BLOOD UREA NITROGEN 23 mg/dL (7-17); CHLORIDE 102 mmol/L (98-107); Calcium 9.9 mg/dL (8.4-10.2); Carbon Dioxide 26 mmol/L (22-30); Creatinine 1 0.89 mg/dL (0.52-1.04); EST GLOMERULAR FILTRATION RATE > 60.0 ML/MIN; ETHYL ALCOHOL < 10 mg/dL (0-10); Glucose 105 mg/dL (74-106); Potassium 4.7 mmol/L (3.5-5.1); SALICYLATE < 1.0 mg/dL (2-20); SGOT/AST 57 U/L (14-36); SGPT/ALT 94 U/L (0-35); SODIUM 138 mmol/L (137-145); Total Protein 8.2 g/dL (6.3-8.2)
[2021-10-08 05:37] LABS: Appearance CLEAR (CLEAR); Bilirubin NEGATIVE (NEGATIVE); Blood NEGATIVE Ery/ul (0-5); Glucose NEGATIVE (NEGATIVE); Ketones NEGATIVE (NEGATIVE); Leukocyte Esterase NEGATIVE (NEGATIVE); Mucus SLIGHT /HPF (NEGATIVE); Nitrite NEGATIVE (NEGATIVE); Protein,Urine Dip NEGATIVE (Negative); RBC 0-2 /HPF (0-2); Urobilinogen NEGATIVE mg/dL (0-1); WBC 0-2 /HPF (0-5)
[2021-10-08 05:49] LABS: Barbiturate,Urine NEGATIVE (NEGATIVE); Benzodiazepine,Urine POSITIVE (NEGATIVE); Cocaine,Urine NEGATIVE (NEGATIVE); Methadone,Urine NEGATIVE (NEGATIVE); Opiate,Urine NEGATIVE (NEGATIVE); PCP,Urine NEGATIVE (NEGATIVE); THC,Urine POSITIVE (NEGATIVE)
[2021-10-08 06:07] LABS: Amphetamine,Urine POSITIVE (NEGATIVE)
[2021-10-08 10:02] VITALS: O2SAT 100
[2021-10-08 11:32] LABS: COVID AG -BINAX NOW RAPID TEST NEGATIVE (NEGATIVE)
[2021-10-08 12:14] VITALS: BP 97/63
[2021-10-08 13:36] VITALS: PULSE 72
== END 2021-10-08 13:36 | disposition short-term general hospital (02) ==
LOC: ED 02:07
DX: F15.950 Other stimulant use, unspecified with stimulant-induced psychotic disorder with delusions (principal)
CPT/HCPCS: 36415; 80053; 80307; 81001; 81025; 85025; 96372; 99000; 99285; G0480; J1630

== ENCOUNTER 2022-08-04 18:21 | Emergency (ER) | payer OTHER ==
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
[2022-08-04 20:17] VITALS: BP 124/79; PULSE 81
[2022-08-04 21:33] VITALS: O2SAT 98
--- NOTE | 2022-08-04 21:58 | XRAY ---
Indication: First digit pain following surgery 1 week ago. Comparison: None 3 view left hand demonstrates nondisplaced fracture base 1st metacarpal ulnar aspect. No other bony, articular, or soft tissue abnormalities. Comment: Preliminary interpretation made by [facility]. No critical discrepancy.
== END 2022-08-04 21:41 | disposition left against medical advice (07) ==
LOC: ED 18:21
DX: S62.235A Other nondisplaced fracture of base of first metacarpal bone, left hand, initial encounter for closed fracture (principal); Y04.2XXA Assault by strike against or bumped into by another person, initial encounter; Z72.0 Tobacco use
CPT/HCPCS: 73130; 99282

== ENCOUNTER 2024-02-25 11:03 | Emergency (ER) | payer OTHER ==
--- NOTE | 2024-02-25 11:28 | ERPHSYRPT ---
- History of Present Illness Time Seen by Provider: 02/25/24 11:10 Source: patient, EMS, police Exam Limitations: clinical condition Patient Subjective Stated Complaint: EMS reports they were called to the scene by PD for transport of patient to the hospital. PD reports that patient is paranoid. Her parents call law enforcement due to patient banging on their windows of their home and claiming her parents weren't her parents and were replaced by pod people. She was agitated at the scene of the incident. Reported that patient has a history of meth use. Patient without any c/o at this time. Denies any pain. Denies suicidal or homicidal thoughts. Triage Nursing Assessment: Patient arrived by ambulance. She is agitated. She has a plastic cup in her hand. She is refusing to speak with most staff or answer most questions. Will not allow staff to take her vital signs or obtain her height and weight. Patient making statements about EMS bodies being replaced by imposters. States, "you are all being set-up by right now." No SOB. Skin tone normal. She is refusing to get undressed to wear a hospital gown. AHUJA WNL; moving freely around room. Physician History: This is a 38-year-old white female patient who was brought to the emergency room by paramedics at the request of the police department. This patient has history of paranoid behavior. She has a history of methamphetamine use and abuse. Patient has these episodes frequently. Patient was incarcerated secondary to her methamphetamine use and abuse send behavior warranting incarceration as recent as November 2023. She then was home for short period of time and reincarcerated and, per police report, the patient's father bailed her out. Patient's parents contacted the police department because the patient was up all night. She started banging on her parents windows. Because of this behavior, which has a heard when the patient is abusing methamphetamines, parents contacted police department who brought her into the emergency department. Patient denies headache. Patient denies chest pain. Patient denies shortness of breath. Patient denies abdominal pain. Patient is refusing to provide us necessary information. Patient states that it does not matter what she is allergic to since she is refusing all medications. Patient also will not provide us information as to what medication she is taking or whether or not she has been using illicit drugs. Patient has a history of gastroesophageal reflux disease, anxiety issues, depression issues, hepatitis C, PTSD. Patient describes that her parents have been replaced, the physicians and emergency room doctors and nurses have been replaced by other people, she states that she has cameras in her eyes and the world can see what is going on. She states that she was ill legally removed from her parents home and taking illegally to the emergency department. Patient is not answering the question regarding suicidal or homicidal ideation. She is vague on the questioning in terms of auditory visual hallucinations. Timing/Duration: today Severity of Symptoms-Max: moderate Severity of Symptoms-Current: moderate Associated Symptoms: anxiety, confused, paranoid Previous symptoms: same symptoms as today, no recent treatment Allergies/Adverse Reactions: No Known Drug Allergies Allergy (Unverified 08/04/22 19:34) Home Medications: Unobtainable 02/25/24 [History] Hx Tetanus, Diphtheria Vaccination/Date Given: Yes Hx Influenza Vaccination/Date Given: No Hx Pneumococcal Vaccination/Date Given: No Travel Risk - International Travel Have you traveled outside of the country in past 3 weeks: No - Emerging Infectious Disease Are you exhibiting symptoms associated with any current EIDs: No - Past Medical History Pertinent Past Medical History: Yes Neurological History: No Pertinent History ENT History: No Pertinent History Cardiac History: No Pertinent History Respiratory History: No Pertinent History Endocrine Medical History: No Pertinent History Musculoskeletal History: No Pertinent History GI Medical History: GERD History: No Pertinent History Psycho-Social History: Anxiety, Depression, Other Female Reproductive Disorders: No Pertinent History Other Medical History: POST TRAUMATIC STRESS DISORDER, HEPATITIS C. Unable to obtain medical history from patient; refusing to give. All medical history used from previous visits to ER. - Past Surgical History Past Surgical History: Yes Neuro Surgical History: No Pertinent History Cardiac: No Pertinent History Respiratory: No Pertinent History Gastrointestinal: Appendectomy Genitourinary: No Pertinent History Musculoskeletal: No Pertinent History Female Surgical History: No Pertinent History Other Surgical History: Patient is unable to give a surgical history at this time. Surgical history obtained from previous medical records at hospital. Significant Family History: no pertinent family hx - Female History Hx Now: (unknown) - Social History Smoking Status: Unknown if ever smoked How long have you smoked: 5 years Exposure to second hand smoke: No Alcohol Use: Socially Drug Use: none Patient Lives Alone: Yes (pt states she is homeless) - Nursing Vital Signs Nursing Vital Signs: Initial Vital Signs Temperature 98 F 02/25/24 12:15 Pulse Rate 125 H 02/25/24 12:15 Respiratory Rate 19 02/25/24 12:15 Blood Pressure 133/99 02/25/24 12:15 O2 Sat by Pulse Oximetry 100 02/25/24 12:15 Pain Scale Pain Intensity 0 - Physical Exam General Appearance: alert, anxiety Neck Exam: normal inspection, non-tender, supple, full range of motion Respiratory Exam: airway intact, No chest tenderness, No respiratory distress Gastrointestinal/Abdominal Exam: No tenderness Extremities Exam: normal inspection, normal range of motion, No evidence of injury Neurological Exam: calm, sap bods developer II-XII nml as tested, oriented x 3, anxious Appearance: impaired insight Behavior/Eye Contact/Speech: good eye contact Thoughts/Hallucinations: paranoid Skin Exam: normal color, warm, dry SpO2 Interpretation: normal O2 Delivery: Room Air (I am unable to perform a full, complete physical examination. Patient is refusing.) - Course Nursing assessment & vital signs reviewed: Yes Ordered Tests: Active Orders 24 hr Category Date Time Status Relay Dispatcher STAT Care 02/25/24 11:32 Active EKG-ER Only STAT Care 02/25/24 11:31 Active ACETAMINOPHEN Stat Lab 02/25/24 13:00 Completed CBC W DIFF Stat Lab 02/25/24 13:00 Completed CMP Stat Lab 02/25/24 13:00 Completed CULTURE,URINE Stat Lab 02/25/24 14:08 Received ETHYL ALCOHOL Stat Lab 02/25/24 13:00 Completed SALICYLATE Stat Lab 02/25/24 13:00 Completed UA W/RFX UR CULTURE Stat Lab 02/25/24 14:08 Completed Urine Triage Profile Stat Lab 02/25/24 14:08 Completed Medication Summary Discontinued Medications Generic Name Dose Route Start Last Admin Trade Name Freq PRN Reason Stop Dose Admin Haloperidol Lactate Confirm 02/25/24 12:02 Haloperidol Lactate 5 Mg/Ml Vial Administered 02/25/24 12:03 Dose 10 mg .ROUTE .STK-MED ONE Haloperidol Lactate 10 mg 02/25/24 12:14 02/25/24 12:17 Haloperidol Lactate 5 Mg/Ml Vial IM 02/25/24 12:15 10 mg STAT ONE Administration Haloperidol Lactate 10 mg 02/25/24 12:10 02/25/24 12:23 Haloperidol Lactate 5 Mg/Ml Vial IM 02/25/24 12:11 Not Given STAT ONE Lab/Rad Data: Laboratory Result Diagrams 02/25/24 13:00 02/25/24 13:00 Laboratory Results 02/25/24 02/25/24 02/25/24 Range/Units 14:08 14:08 13:00 WBC (4.0-10.5) x10^3/uL RBC (4.1-5.4) x10^6/uL Hgb (12.0-16.0) g/dL Hct (35-47) % MCV (78-100) fL MCH (26-32) pg MCHC (32-36) g/dL RDW (11.5-14.0) % Plt Count (150-450) x10^3/uL MPV (7.5-11.0) fL Gran % (36.0-66.0) % Immature Gran % (Auto) (0.00-0.4) % Nucleat RBC Rel Count (0.00-0.1) % Eos # (Auto) (0-0.5) x10^3/uL Immature Gran # (Auto) (0.00-0.03) x10^3u/L Absolute Lymphs (auto) (1.0-4.6) x10^3/uL Absolute Monos (auto) (0.0-1.3) x10^3/uL Absolute Nucleated RBC (0.00-0.01) x10^3u/L Lymphocytes % (24.0-44.0) % Monocytes % (0.0-12.0) % Eosinophils % (0.00-5.0) % Basophils % (0.0-0.4) % Absolute Granulocytes (1.4-6.9) x10^3/uL Basophils # (0-0.4) x10^3/uL Sodium (135-145) mmol/L Potassium (3.5-5.1) mmol/L Chloride (98-107) mmol/L Carbon Dioxide (22-30) mmol/L Anion Gap (5-15) MEQ/L BUN (7-17) mg/dL Creatinine (0.52-1.04) mg/dL Estimated GFR ML/MIN Glucose (74-106) mg/dL Calcium (8.4-10.2) mg/dL Total Bilirubin (0.2-1.3) mg/dL AST (14-36) U/L ALT (0-35) U/L Alkaline Phosphatase (38-126) U/L Serum Total Protein (6.3-8.2) g/dL Albumin (3.5-5.0) g/dL Urine Color Yellow (Yellow) Urine Appearance Cloudy A (Clear) Urine pH 5.5 (4.6-8.0) Ur Specific [place] 1.020 (1.005-1.030) Urine Protein 30 (Negative) Urine Glucose (UA) Negative (Negative) mg/dL Urine Ketones 15 A (Negative) Urine Blood Negative (Negative) Urine Nitrite Negative (Negative) Urine Bilirubin Negative (Negative) Urine Urobilinogen 1.0 A (0.2) mg/dL Ur Leukocyte Esterase Trace A (Negative) U Hyaline Cast (Auto) 3-5 A (0-2) /LPF Urine Microscopic RBC 0-2 (0-5) /HPF Urine Microscopic WBC 3-5 (0-5) /HPF Ur Epithelial Cells Moderate A (None Seen) /HPF Urine Bacteria Moderate A (None Seen) /HPF Urine Culture Reflexed YES (NO) Salicylates (2-20) mg/dL Urine Opiates Level NEGATIVE (NEGATIVE) Ur Methadone NEGATIVE (NEGATIVE) Acetaminophen (10-30) ug/ml Urine Barbiturates NEGATIVE (NEGATIVE) Ur Phencyclidine (PCP) NEGATIVE (NEGATIVE) Urine Amphetamine POSITIVE A (NEGATIVE) U Benzodiazepine Level POSITIVE A (NEGATIVE) Urine Cocaine NEGATIVE (NEGATIVE) Urine Marijuana (THC) POSITIVE A (NEGATIVE) Ethyl Alcohol (0-10) mg/dL Influenza Type A Ag NEGATIVE (NEGATIVE) Influenza Type B Ag NEGATIVE (NEGATIVE) RSV (PCR) NEGATIVE (NEGATIVE) SARS-CoV-2 (PCR) NEGATIVE (NEGATIVE) 02/25/24 02/25/24 Range/Units 13:00 13:00 WBC 15.2 H (4.0-10.5) x10^3/uL RBC 4.70 (4.1-5.4) x10^6/uL Hgb 13.4 (12.0-16.0) g/dL Hct 39.8 (35-47) % MCV 84.7 (78-100) fL MCH 28.5 (26-32) pg MCHC 33.7 (32-36) g/dL RDW 13.8 (11.5-14.0) % Plt Count 408 (150-450) x10^3/uL MPV 8.9 (7.5-11.0) fL Gran % 77.1 H (36.0-66.0) % Immature Gran % (Auto) 0.5 H (0.00-0.4) % Nucleat RBC Rel Count 0.0 (0.00-0.1) % Eos # (Auto) 0.01 (0-0.5) x10^3/uL Immature Gran # (Auto) 0.08 H (0.00-0.03) x10^3u/L Absolute Lymphs (auto) 1.99 (1.0-4.6) x10^3/uL Absolute Monos (auto) 1.36 H (0.0-1.3) x10^3/uL Absolute Nucleated RBC 0.00 (0.00-0.01) x10^3u/L Lymphocytes % 13.1 L (24.0-44.0) % Monocytes % 8.9 (0.0-12.0) % Eosinophils % 0.1 (0.00-5.0) % Basophils % 0.3 (0.0-0.4) % Absolute Granulocytes 11.74 H (1.4-6.9) x10^3/uL Basophils # 0.05 (0-0.4) x10^3/uL Sodium 136 (135-145) mmol/L Potassium 3.7 (3.5-5.1) mmol/L Chloride 103 (98-107) mmol/L Carbon Dioxide 18 L (22-30) mmol/L Anion Gap 19.2 H (5-15) MEQ/L BUN 27 H (7-17) mg/dL Creatinine 1.00 (0.52-1.04) mg/dL Estimated GFR 74.9 ML/MIN Glucose 114 H (74-106) mg/dL Calcium 9.9 (8.4-10.2) mg/dL Total Bilirubin 0.80 (0.2-1.3) mg/dL AST 32 (14-36) U/L ALT 34 (0-35) U/L Alkaline Phosphatase 73 (38-126) U/L Serum Total Protein 8.4 H (6.3-8.2) g/dL Albumin 4.6 (3.5-5.0) g/dL Urine Color (Yellow) Urine Appearance (Clear) Urine pH (4.6-8.0) Ur Specific [place] (1.005-1.030) Urine Protein (Negative) Urine Glucose (UA) (Negative) mg/dL Urine Ketones (Negative) Urine Blood (Negative) Urine Nitrite (Negative) Urine Bilirubin (Negative) Urine Urobilinogen (0.2) mg/dL Ur Leukocyte Esterase (Negative) U Hyaline Cast (Auto) (0-2) /LPF Urine Microscopic RBC (0-5) /HPF Urine Microscopic WBC (0-5) /HPF Ur Epithelial Cells (None Seen) /HPF Urine Bacteria (None Seen) /HPF Urine Culture Reflexed (NO) Salicylates < 1.0 L (2-20) mg/dL Urine Opiates Level (NEGATIVE) Ur Methadone (NEGATIVE) Acetaminophen < 10 L (10-30) ug/ml Urine Barbiturates (NEGATIVE) Ur Phencyclidine (PCP) (NEGATIVE) Urine Amphetamine (NEGATIVE) U Benzodiazepine Level (NEGATIVE) Urine Cocaine (NEGATIVE) Urine Marijuana (THC) (NEGATIVE) Ethyl Alcohol < 10 (0-10) mg/dL Influenza Type A Ag (NEGATIVE) Influenza Type B Ag (NEGATIVE) RSV (PCR) (NEGATIVE) SARS-CoV-2 (PCR) (NEGATIVE) - Progress Progress: unchanged Progress Note: 02/25/24 11:45 My medical decision making and the assignment of high medical complexity to this patient's medical condition today, is based on review of the patient's past medical history, review of the patient's medication list, review of the patient's drug allergy list, history present illness and physical findings on examination. Patient is unable to and unwilling to provide us with an accurate, complete medication, allergy and complaint list or information. Additional, independent history was obtained from prior management in our facility, police department, paramedics and the patient's family members. Differential diagnosis includes paranoid behavior, schizophrenia, illicit drug intoxication. 02/25/24 12:17 We attempted several discussions with the patient as well as with the patient's father regarding obtaining the workup necessary to have this patient evaluated by mental health services in this acute setting. Patient is emergently detained. She has continued to refuse. Therefore, we injected her with 10 mg intramuscular haloperidol lactate. We also applied soft restraints. She is aware that if and when she is cooperating fully. We will remove the restraints. 02/25/24 16:46 I interpreted the patient's laboratory data results. The patient test positive for benzodiazepine, marijuana and methamphetamines. [facility] in transfer. The judges to sign the emergency halfway form and we will make arrangements to transfer the patient. Counseled pt/family regarding: lab results, diagnosis Medical Desision Making - Independent Historian Additional History obtained from: Father, Zinc Skimmer/EMT (In addition police department/officer) - Discussion of managment Care discussed with:: specialist Reviewed:: Test results, Need for additional workup - Social Determinants of Health Pt's dx & treatment plan are significantly limited by SDOH: Unemployed, financial hardships, housing insecurity Limited access to: transportation, medical care - Diagnostic Testing Diagnostic test were ordered, analyzed, and reviewed by me: Yes - Risk of complications The pt has a high risk of morbidity or mortality based on: Decision regarding hospitilization or escalation of hosp level of care - Departure Departure Disposition: Transfer Clinical Impression: Paranoid behavior, Oppositional defiant behavior, Methamphetamine abuse Condition: Stable Critical Care Time: No Referrals: PERRI BREWSTER MD [Primary Care Provider] - Follow up/PCP as directed
[2024-02-25] MEDS ORDERED: Haldol 5 MG ONE (12:02)
[2024-02-25] MEDS: Haldol 5 MG IM ONE ×2 (12:17→12:23)
[2024-02-25 12:39] VITALS: TEMP 98
[2024-02-25 13:08] LABS: Absolute Neutrophil Ct (ANC) 11.74 x10^3/uL (1.4-6.9); BASOPHIL % 0.3 % (0.0-0.4); Basophil (Absolute #) 0.05 x10^3/uL (0-0.4); Eosinophil % 0.1 % (0.00-5.0); Eosinophil (Absolute #) 0.01 x10^3/uL (0-0.5); Hematocrit 39.8 % (35-47); Hemoglobin 13.4 g/dL (12.0-16.0); IMMATURE GRAN # 0.08 x10^3u/L (0.00-0.03); IMMATURE GRAN % 0.5 % (0.00-0.4); Lymphocyte (Absolute #) 1.99 x10^3/uL (1.0-4.6); Lymphocytes % 13.1 % (24.0-44.0); Mean Cell Volume 84.7 fL (78-100); Mean Corpuscular Hemoglobin 28.5 pg (26-32); Mean Corpuscular Hgb Concent. 33.7 g/dL (32-36); Mean Platelet Volume 8.9 fL (7.5-11.0); Monocyte (Absolute #) 1.36 x10^3/uL (0.0-1.3); Monocytes % 8.9 % (0.0-12.0); Neutrophil % 77.1 % (36.0-66.0); Platelet Count 408 x10^3/uL (150-450); Red Cell Distribution Width 13.8 % (11.5-14.0); White Blood Count 15.2 x10^3/uL (4.0-10.5)
[2024-02-25 13:18] LABS: ACETAMINOPHEN < 10 ug/ml (10-30); ALBUMIN 4.6 g/dL (3.5-5.0); ALKALINE PHOSPHATASE 73 U/L (38-126); ANION GAP 19.2 MEQ/L (5-15); BLOOD UREA NITROGEN 27 mg/dL (7-17); CHLORIDE 103 mmol/L (98-107); Calcium 9.9 mg/dL (8.4-10.2); Carbon Dioxide 18 mmol/L (22-30); EST GLOMERULAR FILTRATION RATE 74.9 ML/MIN; ETHYL ALCOHOL < 10 mg/dL (0-10); Glucose 114 mg/dL (74-106); Potassium 3.7 mmol/L (3.5-5.1); SALICYLATE < 1.0 mg/dL (2-20); SGOT/AST 32 U/L (14-36); SGPT/ALT 34 U/L (0-35); SODIUM 136 mmol/L (135-145); Total Protein 8.4 g/dL (6.3-8.2)
[2024-02-25 13:40] LABS: INFLUENZA A NEGATIVE (NEGATIVE); INFLUENZA B NEGATIVE (NEGATIVE); RESPIRATORY SYNCTIAL VIRUS NEGATIVE (NEGATIVE); SARS-CoV-2 Xpert Express NEGATIVE (NEGATIVE)
[2024-02-25 14:34] LABS: Appearance Cloudy (Clear); Bacteria Moderate /HPF (None Seen); Bilirubin Negative (Negative); Blood Negative (Negative); Epithelial Cells Moderate /HPF (None Seen); Glucose, Urine Negative (Negative); Ketones 15 (Negative); Leukocyte Esterase Trace (Negative); Nitrite Negative (Negative); Ph 5.5 (4.6-8.0); Protein,Urine Dip 30 (Negative); RBC 0-2 /HPF (0-5)
[2024-02-25 14:37] LABS: Barbiturate,Urine NEGATIVE (NEGATIVE); Benzodiazepine,Urine POSITIVE (NEGATIVE); Cocaine,Urine NEGATIVE (NEGATIVE); Methadone,Urine NEGATIVE (NEGATIVE); Opiate,Urine NEGATIVE (NEGATIVE); PCP,Urine NEGATIVE (NEGATIVE); THC,Urine POSITIVE (NEGATIVE)
[2024-02-25 14:38] LABS: ADD URINE CULTURE? YES (NO)
[2024-02-25 15:12] LABS: Amphetamine,Urine POSITIVE (NEGATIVE)
[2024-02-25 18:50] VITALS: PULSE 88; RESP 17; O2SAT 96
[2024-02-25 19:16] VITALS: BP 92/63
== END 2024-02-25 20:38 ==
LOC: ED 11:03
DX: F22 Delusional disorders (principal); F91.3 Oppositional defiant disorder; F15.10 Other stimulant abuse, uncomplicated; Z56.0 Unemployment, unspecified; Z59.82 Transportation insecurity; Z59.9 Problem related to housing and economic circumstances, unspecified; Z75.9 Unspecified problem related to medical facilities and other health care
CPT/HCPCS: 0241U; 36415; 80053; 80143; 80179; 80307; 81001; 82077; 85025; 87086; 93005; 93041; 96372; 99285; J1630

== ENCOUNTER 2024-03-09 15:09 | Emergency (ER) | payer OTHER | END 2024-03-09 17:00 | disposition left against medical advice (07) | LOC: ED 15:09 | DX: Z53.21 Procedure and treatment not carried out due to patient leaving prior to being seen by health care provider (principal) ==

== ENCOUNTER 2024-03-11 15:44 | Emergency (ER) | payer OTHER ==
[2024-03-11 16:13] VITALS: TEMP 97
[2024-03-11] MEDS: xanAX 0.5 MG PO ONE ×2 (16:28→18:11)
[2024-03-11] MEDS ORDERED: xanAX 0.5 MG ONE ×2 (16:28→18:10)
[2024-03-11 16:33] LABS: HCG URINE TEST NEGATIVE (NEGATIVE)
[2024-03-11 16:38] LABS: Appearance Clear (Clear); Bacteria None Seen /HPF (None Seen); Bilirubin Negative (Negative); Blood Negative (Negative); Epithelial Cells None Seen /HPF (None Seen); Glucose, Urine Negative (Negative); Hyaline Casts NONE SEEN /LPF (0-2); Ketones Negative (Negative); Leukocyte Esterase Negative (Negative); Nitrite Negative (Negative); Protein,Urine Dip Negative (Negative); RBC 0-2 /HPF (0-5); Urobilinogen 0.2 mg/dL (0.2); WBC 0-2 /HPF (0-5)
[2024-03-11 16:38] LABS: Absolute Neutrophil Ct (ANC) 6.96 x10^3/uL (1.4-6.9); BASOPHIL % 0.5 % (0.0-0.4); Basophil (Absolute #) 0.05 x10^3/uL (0-0.4); Eosinophil % 1.8 % (0.00-5.0); Eosinophil (Absolute #) 0.18 x10^3/uL (0-0.5); Hematocrit 40.4 % (35-47); Hemoglobin 13.2 g/dL (12.0-16.0); IMMATURE GRAN # 0.04 x10^3u/L (0.00-0.03); IMMATURE GRAN % 0.4 % (0.00-0.4); Lymphocyte (Absolute #) 2.38 x10^3/uL (1.0-4.6); Lymphocytes % 23.4 % (24.0-44.0); Mean Cell Volume 86.7 fL (78-100); Mean Corpuscular Hemoglobin 28.3 pg (26-32); Mean Corpuscular Hgb Concent. 32.7 g/dL (32-36); Mean Platelet Volume 8.8 fL (7.5-11.0); Monocyte (Absolute #) 0.57 x10^3/uL (0.0-1.3); Monocytes % 5.6 % (0.0-12.0); Neutrophil % 68.3 % (36.0-66.0); Platelet Count 434 x10^3/uL (150-450); Red Blood Count 4.66 x10^6/uL (4.1-5.4); White Blood Count 10.2 x10^3/uL (4.0-10.5)
[2024-03-11 16:45] VITALS: PULSE 72; RESP 18
[2024-03-11 16:54] LABS: ADD URINE CULTURE? NO (NO)
[2024-03-11 16:56] LABS: ACETAMINOPHEN < 10 ug/ml (10-30); ALBUMIN 4.5 g/dL (3.5-5.0); ALKALINE PHOSPHATASE 67 U/L (38-126); ANION GAP 11.7 MEQ/L (5-15); BLOOD UREA NITROGEN 12 mg/dL (7-17); CHLORIDE 105 mmol/L (98-107); Calcium 9.4 mg/dL (8.4-10.2); Carbon Dioxide 28 mmol/L (22-30); Creatinine 1 0.93 mg/dL (0.52-1.04); EST GLOMERULAR FILTRATION RATE 81.7 ML/MIN; ETHYL ALCOHOL < 10 mg/dL (0-10); Glucose 137 mg/dL (74-106); Potassium 3.9 mmol/L (3.5-5.1); SALICYLATE < 1.0 mg/dL (2-20); SGOT/AST 28 U/L (14-36); SGPT/ALT 36 U/L (0-35); SODIUM 140 mmol/L (135-145); Total Protein 8.1 g/dL (6.3-8.2)
[2024-03-11 17:08] LABS: Amphetamine,Urine NEGATIVE (NEGATIVE); Barbiturate,Urine NEGATIVE (NEGATIVE); Benzodiazepine,Urine POSITIVE (NEGATIVE); Cocaine,Urine NEGATIVE (NEGATIVE); Methadone,Urine NEGATIVE (NEGATIVE); Opiate,Urine NEGATIVE (NEGATIVE); PCP,Urine NEGATIVE (NEGATIVE); THC,Urine POSITIVE (NEGATIVE)
[2024-03-11 18:03] VITALS: BP 110/78; O2SAT 98
--- NOTE | 2024-03-11 20:43 | ERPHSYRPT ---
- History of Present Illness Time Seen by Provider: 03/11/24 16:30 Patient Subjective Stated Complaint: pt sent here from [facility] to be medically cleared. pt was brought in mom. she has a long hx mental illness and has not been taking her medications, Triage Nursing Assessment: pt alert, walked in, yelling out at times, she is inpatient and wants her home meds. resp easy, skin w/d/p.moves all ext well, no edema noted. pt states to me while she was at [facility] she states people are invading their minds. Physician History: 38-year-old female presents to our ED as a referral from [facility] for medical clearance. Patient is accompanied by her mother. Mother reports patient has a longstanding history of mental illness. Most recently patient st opped taking her prescribed medications. Patient has made threatening remarks to her mother. Mother is afraid for her life. Patient displays disorganized speech. She is experiencing visual hallucinations as well. She denies pain. No trauma no fever no nausea vomiting or diarrhea no rash. Symptoms are constant. Symptoms are moderate in intensity. No specific worsening improving factors. Patient voices no other complaints or concerns at this time. Portions of this note were created with voice recognition technology. There may be grammatical, spelling, punctuation or sound alike errors Timing/Duration: today Severity of Symptoms-Max: moderate Severity of Symptoms-Current: moderate Context related to: other Suicidal thoughts: gesture Associated Symptoms: denies symptoms Previous symptoms: same symptoms as today Allergies/Adverse Reactions: No Known Drug Allergies Allergy (Verified 03/11/24 16:11) Home Medications: Unobtainable 02/25/24 [History] Hx Tetanus, Diphtheria Vaccination/Date Given: No Hx Influenza Vaccination/Date Given: No Hx Pneumococcal Vaccination/Date Given: No Immunizations Up to Date: Yes Travel Risk - International Travel Have you traveled outside of the country in past 3 weeks: No - Emerging Infectious Disease Are you exhibiting symptoms associated with any current EIDs: No - Past Medical History Pertinent Past Medical History: Yes Neurological History: No Pertinent History ENT History: No Pertinent History Cardiac History: No Pertinent History Respiratory History: No Pertinent History Endocrine Medical History: No Pertinent History Musculoskeletal History: No Pertinent History GI Medical History: GERD History: No Pertinent History Psycho-Social History: Anxiety, Depression, Other Female Reproductive Disorders: No Pertinent History Other Medical History: POST TRAUMATIC STRESS DISORDER, HEPATITIS C. Unable to obtain medical history from patient; refusing to give. All medical history used from previous visits to ER. - Past Surgical History Past Surgical History: Yes Neuro Surgical History: No Pertinent History Cardiac: No Pertinent History Respiratory: No Pertinent History Gastrointestinal: Appendectomy Genitourinary: No Pertinent History Musculoskeletal: No Pertinent History Female Surgical History: No Pertinent History Other Surgical History: Patient is unable to give a surgical history at this time. Surgical history obtained from previous medical records at hospital. Significant Family History: no pertinent family hx - Female History Hx Last Menstrual Period: irregular Hx Now: No - Social History Smoking Status: Unknown if ever smoked How long have you smoked: 5 years Exposure to second hand smoke: No Alcohol Use: Socially Drug Use: none Patient Lives Alone: Yes (pt states she is homeless) - Review of Systems Constitutional: No Symptoms, No Fever, No Chills Eyes: No Symptoms Ears, Nose, & Throat: No Symptoms Respiratory: No Symptoms, No Cough, No Dyspnea Cardiac: No Symptoms, No Chest Pain, No Edema, No Syncope Abdominal/Gastrointestinal: No Symptoms, No Abdominal Pain, No Nausea, No Vomiting, No Diarrhea Genitourinary Symptoms: No Symptoms, No Dysuria Musculoskeletal: No Symptoms, No Back Pain, No Neck Pain Skin: No Symptoms, No Rash Neurological: No Symptoms, No Dizziness, No Focal Weakness, No Sensory Changes Psychological: No Symptoms Endocrine: No Symptoms Hematologic/Lymphatic: No Symptoms Immunological/Allergic: No Symptoms All Other Systems: Reviewed and Negative - Nursing Vital Signs Nursing Vital Signs: Initial Vital Signs Temperature 97.0 F 03/11/24 16:12 Pulse Rate 104 H 03/11/24 16:12 Respiratory Rate 20 03/11/24 16:12 Blood Pressure 105/78 03/11/24 16:12 O2 Sat by Pulse Oximetry 97 03/11/24 16:12 Pain Scale Pain Intensity 0 - Physical Exam General Appearance: no apparent distress Eyes, Ears, Nose, Throat Exam: normal ENT inspection, moist mucous membranes Neck Exam: normal inspection, non-tender, supple Respiratory Exam: normal breath sounds, lungs clear, No respiratory distress Cardiovascular Exam: regular rate/rhythm, No edema Gastrointestinal/Abdominal Exam: soft, No tenderness, No distention Extremities Exam: normal inspection, normal range of motion, No evidence of injury, No edema Current Suicidality: denies suicide plan 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, 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, 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 x 3 Appearance: appropriate appearance, appropriate insight Behavior/Eye Contact/Speech: alert & cooperative, cooperative, normal speech, belligerent Thoughts/Hallucinations: visual hallucinations Skin Exam: normal color, warm, dry, No rash SpO2 Interpretation: normal SpO2: 98 O2 Delivery: Room Air - Course Nursing assessment & vital signs reviewed: Yes Ordered Tests: Active Orders 24 hr Category Date Time Status Packaging Associate STAT Care 03/11/24 16:24 Active ACETAMINOPHEN Stat Lab 03/11/24 16:35 Completed CBC W DIFF Stat Lab 03/11/24 16:35 Completed CMP Stat Lab 03/11/24 16:35 Completed ETHYL ALCOHOL Stat Lab 03/11/24 16:35 Completed HCG QUALITATIVE, URINE Stat Lab 03/11/24 16:26 Completed SALICYLATE Stat Lab 03/11/24 16:35 Completed UA W/RFX UR CULTURE Stat Lab 03/11/24 16:26 Completed Urine Triage Profile Stat Lab 03/11/24 16:26 Completed Medication Summary Discontinued Medications Generic Name Dose Route Start Last Admin Trade Name Terrellq PRN Reason Stop Dose Admin Alprazolam 0.5 mg 03/11/24 16:24 03/11/24 16:28 Alprazolam 0.5 Mg Tablet PO 03/11/24 16:25 0.5 mg STAT ONE Administration Alprazolam Confirm 03/11/24 16:28 Alprazolam 0.5 Mg Tablet Administered 03/11/24 16:29 Dose 0.5 mg .ROUTE .STK-MED ONE Alprazolam 0.5 mg 03/11/24 18:08 03/11/24 18:11 Alprazolam 0.5 Mg Tablet PO 03/11/24 18:09 0.5 mg STAT ONE Administration Alprazolam Confirm 03/11/24 18:10 Alprazolam 0.5 Mg Tablet Administered 03/11/24 18:11 Dose 0.5 mg .ROUTE .STK-MED ONE Lab/Rad Data: Laboratory Result Diagrams 03/11/24 16:35 03/11/24 16:35 Laboratory Results 03/11/24 03/11/24 03/11/24 Range/Units 16:35 16:35 16:26 WBC 10.2 (4.0-10.5) x10^3/uL RBC 4.66 (4.1-5.4) x10^6/uL Hgb 13.2 (12.0-16.0) g/dL Hct 40.4 (35-47) % MCV 86.7 (78-100) fL MCH 28.3 (26-32) pg MCHC 32.7 (32-36) g/dL RDW 14.0 (11.5-14.0) % Plt Count 434 (150-450) x10^3/uL MPV 8.8 (7.5-11.0) fL Gran % 68.3 H (36.0-66.0) % Immature Gran % (Auto) 0.4 (0.00-0.4) % Nucleat RBC Rel Count 0.0 (0.00-0.1) % Eos # (Auto) 0.18 (0-0.5) x10^3/uL Immature Gran # (Auto) 0.04 H (0.00-0.03) x10^3u/L Absolute Lymphs (auto) 2.38 (1.0-4.6) x10^3/uL Absolute Monos (auto) 0.57 (0.0-1.3) x10^3/uL Absolute Nucleated RBC 0.00 (0.00-0.01) x10^3u/L Lymphocytes % 23.4 L (24.0-44.0) % Monocytes % 5.6 (0.0-12.0) % Eosinophils % 1.8 (0.00-5.0) % Basophils % 0.5 (0.0-0.4) % Absolute Granulocytes 6.96 H (1.4-6.9) x10^3/uL Basophils # 0.05 (0-0.4) x10^3/uL Sodium 140 (135-145) mmol/L Potassium 3.9 (3.5-5.1) mmol/L Chloride 105 (98-107) mmol/L Carbon Dioxide 28 (22-30) mmol/L Anion Gap 11.7 (5-15) MEQ/L BUN 12 (7-17) mg/dL Creatinine 0.93 (0.52-1.04) mg/dL Estimated GFR 81.7 ML/MIN Glucose 137 H (74-106) mg/dL Calcium 9.4 (8.4-10.2) mg/dL Total Bilirubin 0.40 (0.2-1.3) mg/dL AST 28 (14-36) U/L ALT 36 H (0-35) U/L Alkaline Phosphatase 67 (38-126) U/L Serum Total Protein 8.1 (6.3-8.2) g/dL Albumin 4.5 (3.5-5.0) g/dL Urine Color (Yellow) Urine Appearance (Clear) Urine pH (4.6-8.0) Ur Specific [place] (1.005-1.030) Urine Protein (Negative) Urine Glucose (UA) (Negative) mg/dL Urine Ketones (Negative) Urine Blood (Negative) Urine Nitrite (Negative) Urine Bilirubin (Negative) Urine Urobilinogen (0.2) mg/dL Ur Leukocyte Esterase (Negative) U Hyaline Cast (Auto) (0-2) /LPF Urine Microscopic RBC (0-5) /HPF Urine Microscopic WBC (0-5) /HPF Ur Epithelial Cells (None Seen) /HPF Urine Bacteria (None Seen) /HPF Urine Culture Reflexed (NO) Urine HCG, Qual NEGATIVE (NEGATIVE) Salicylates < 1.0 L (2-20) mg/dL Urine Opiates Level (NEGATIVE) Ur Methadone (NEGATIVE) Acetaminophen < 10 L (10-30) ug/ml Urine Barbiturates (NEGATIVE) Ur Phencyclidine (PCP) (NEGATIVE) Urine Amphetamine (NEGATIVE) U Benzodiazepine Level (NEGATIVE) Urine Cocaine (NEGATIVE) Urine Marijuana (THC) (NEGATIVE) Ethyl Alcohol < 10 (0-10) mg/dL 03/11/24 03/11/24 Range/Units 16:26 16:26 WBC (4.0-10.5) x10^3/uL RBC (4.1-5.4) x10^6/uL Hgb (12.0-16.0) g/dL Hct (35-47) % MCV (78-100) fL MCH (26-32) pg MCHC (32-36) g/dL RDW (11.5-14.0) % Plt Count (150-450) x10^3/uL MPV (7.5-11.0) fL Gran % (36.0-66.0) % Immature Gran % (Auto) (0.00-0.4) % Nucleat RBC Rel Count (0.00-0.1) % Eos # (Auto) (0-0.5) x10^3/uL Immature Gran # (Auto) (0.00-0.03) x10^3u/L Absolute Lymphs (auto) (1.0-4.6) x10^3/uL Absolute Monos (auto) (0.0-1.3) x10^3/uL Absolute Nucleated RBC (0.00-0.01) x10^3u/L Lymphocytes % (24.0-44.0) % Monocytes % (0.0-12.0) % Eosinophils % (0.00-5.0) % Basophils % (0.0-0.4) % Absolute Granulocytes (1.4-6.9) x10^3/uL Basophils # (0-0.4) x10^3/uL Sodium (135-145) mmol/L Potassium (3.5-5.1) mmol/L Chloride (98-107) mmol/L Carbon Dioxide (22-30) mmol/L Anion Gap (5-15) MEQ/L BUN (7-17) mg/dL Creatinine (0.52-1.04) mg/dL Estimated GFR ML/MIN Glucose (74-106) mg/dL Calcium (8.4-10.2) mg/dL Total Bilirubin (0.2-1.3) mg/dL AST (14-36) U/L ALT (0-35) U/L Alkaline Phosphatase (38-126) U/L Serum Total Protein (6.3-8.2) g/dL Albumin (3.5-5.0) g/dL Urine Color Yellow (Yellow) Urine Appearance Clear (Clear) Urine pH 7.0 (4.6-8.0) Ur Specific [place] 1.010 (1.005-1.030) Urine Protein Negative (Negative) Urine Glucose (UA) Negative (Negative) mg/dL Urine Ketones Negative (Negative) Urine Blood Negative (Negative) Urine Nitrite Negative (Negative) Urine Bilirubin Negative (Negative) Urine Urobilinogen 0.2 (0.2) mg/dL Ur Leukocyte Esterase Negative (Negative) U Hyaline Cast (Auto) NONE SEEN (0-2) /LPF Urine Microscopic RBC 0-2 (0-5) /HPF Urine Microscopic WBC 0-2 (0-5) /HPF Ur Epithelial Cells None Seen (None Seen) /HPF Urine Bacteria None Seen (None Seen) /HPF Urine Culture Reflexed NO (NO) Urine HCG, Qual (NEGATIVE) Salicylates (2-20) mg/dL Urine Opiates Level NEGATIVE (NEGATIVE) Ur Methadone NEGATIVE (NEGATIVE) Acetaminophen (10-30) ug/ml Urine Barbiturates NEGATIVE (NEGATIVE) Ur Phencyclidine (PCP) NEGATIVE (NEGATIVE) Urine Amphetamine NEGATIVE (NEGATIVE) U Benzodiazepine Level POSITIVE A (NEGATIVE) Urine Cocaine NEGATIVE (NEGATIVE) Urine Marijuana (THC) POSITIVE A (NEGATIVE) Ethyl Alcohol (0-10) mg/dL - Progress Progress: improved Progress Note: 38-year-old female presents to our ED as a referral from [facility]. Patient here for medical clearance. Patient displaying signs of acute psy chosis. Patient noncompliant with home medication regimen. Physical exam unremarkable. Laboratory workup positive for marijuana. Patient is also benzodiazepine positive however she has a prescription for benzodiazepines. Patient accepted by Dr. Hinton at 2030. Vital stable. No indication for further workup at this time. Patient ready for transfer. Portions of this note were created with voice recognition technology. There may be grammatical, spelling, punctuation or sound alike errors Complexity problem addressed is moderate acute complicated. No critical care time. Complexity of data reviewed and analyzed is extensive. Test ordered test reviewed results analyzed and correlated clinically with history physical examination. Management discussed with partially receiving facility. Risk complication and or risk of morbidity/mortality patient management is low. Vital stable. Time spent to transfer patient approximately 20 minutes. Plan of care established for shared decision making. No social determinants of health present impede follow-up. Portions of this note were created with voice recognition technology. There may be grammatical, spelling, punctuation or sound alike errors 03/11/24 20:41 Counseled pt/family regarding: lab results, diagnosis, need for follow-up - Departure Departure Disposition: Transfer Clinical Impression: Acute psychosis, Noncompliance with medication regimen, Homicidal ideation Condition: Stable Critical Care Time: No Referrals: PERRI BREWSTER MD [Primary Care Provider] - Follow up/PCP as directed
== END 2024-03-11 21:12 ==
LOC: ED 15:44
DX: Z02.2 Encounter for examination for admission to residential institution (principal); F23 Brief psychotic disorder; R45.850 Homicidal ideations; Z91.148 Patient's other noncompliance with medication regimen for other reason
CPT/HCPCS: 36415; 80053; 80143; 80179; 80307; 81001; 81025; 82077; 85025; 93041; 99284; A9270-GY